=== PATIENT | male | born 1950 | race Caucasian/White ===

== ENCOUNTER → 2017-03-19 | Outpatient (CLI) | payer BC ==
[2017-03-19 10:48] LABS: BASO % 0.4 %; BASO ABS # 0.04 K/uL (0-0.2); COMPLETE YES; EOS % 6.8 %; IG% 0.2 %; LYMPH % 36.1 %; LYMPH ABS # 3.31 K/uL (1.2-3.4); MEAN CELL VOLUME 89.5 fL (80-100); MEAN CORPUSCULAR HEMOGLOBIN 30.4 pg (25-34); MEAN PLATELET VOLUME 10.5 fL (7.4-10.4); MONO % 6.3 %; NEUT % 50.2 %; PLATELET COUNT 205 K/uL (130-400); RED BLOOD COUNT 5.03 M/uL (4.7-6.1); WHITE BLOOD COUNT 9.17 K/uL (4.8-10.8)
[2017-03-19 11:58] LABS: ALT/SGPT 43 U/L (12-78); AST/SGOT 22 U/L (15-37); BLOOD UREA NITROGEN 16 mg/dl (7-18); BUN/CREATININE RATIO 14.1 (10-20); CARBON DIOXIDE 24 mmol/L (21-32); CHLORIDE 107 mmol/L (98-107); CHOLESTEROL 176 mg/dl (0-200); CREATININE 1.14 mg/dl (0.60-1.40); GLUCOSE 100 mg/dl (70-99); SODIUM 141 mmol/L (136-145)
[2017-03-19 12:15] LABS: ALB/GLOB RATIO 1.1 (0.9-2); ALKALINE PHOSPHATASE 95 U/L (45-117); CHOLESTEROL/HDL RATIO 3.3; HDL CHOLESTEROL 54 mg/dl; LDL CHOLESTEROL CALCULATED 70 mg/dl; TRIGLYCERIDES 259 mg/dl (0-150); VERY LOW DENSITY LIPOPROT CALC 52 mg/dl
== END | disposition home or self-care (01) ==
LOC: C.LABBC 08:47
PROVIDERS: ATTEND Internal Medicine
DX: Z85.47 Personal history of malignant neoplasm of testis (principal); E78.5 Hyperlipidemia, unspecified; E55.9 Vitamin D deficiency, unspecified; Z12.5 Encounter for screening for malignant neoplasm of prostate; R03.0 Elevated blood-pressure reading, without diagnosis of hypertension

== ENCOUNTER → 2017-03-27 | Outpatient (CLI) | payer BC ==
--- NOTE | 2017-03-27 11:13 | DIAGNOSTIC IMAGING REPORT ---
L-SPINE MIN 4 VIEWS ROUTINE HISTORY: Pain CHRONIC LOW BACK PAIN COMPARISON: None. FINDINGS: There is no fracture. No subluxation. Moderate degenerative disc change L5-S1 and to a minimal extent. Remainder the lumbar spine. Soft tissue as well as pancreatic calcifications throughout. No evidence for bowel distention. No evidence for compression deformity. IMPRESSION: No fracture or subluxation within the lumbar spine. Mild degenerative change. Soft tissue abdominal calcification most likely vascular and less likely related to left renal components The above report was generated using voice recognition software. It may contain grammatical, syntax or spelling errors. Electronically signed by: Live Ernandez M.D. 03/27/2017 11:11 AM Dictated Date/Time: 03/27/2017 11:10 AM
== END | disposition home or self-care (01) ==
LOC: C.RADBC 10:49
PROVIDERS: ATTEND Internal Medicine
DX: M54.5 Low back pain (principal)

== ENCOUNTER → 2017-08-13 | Outpatient (CLI) | payer BC ==
--- NOTE | 2017-08-13 18:33 | DIAGNOSTIC IMAGING REPORT ---
LUMBAR SPINE MRI HISTORY: Low back pain. Left leg pain. LUMBAR STENOSIS,DISC HERNIATION TECHNIQUE: Multiplanar multisequence MRI of the lumbar spine was performed without the use of contrast. COMPARISON: Lumbar spine 03/27/2017. FINDINGS: For the purpose of the report the L5-S1 disc space will be located on axial image 23 of 25. Alignment and curvature intact. No fractures within the lumbar spine. Normal marrow signal intensity seen throughout the visualized osseous structures. Mild disc space narrowing and disc desiccation at L3-L4 and L5-S1. The conus terminates at the L1 level. There is a hypoplastic S1-S2 disc space. There is a 3.4 x 2.1 cm left periaortic nodule. This likely represents an enlarged lymph node. Left peripelvic cysts are noted. Subcentimeter bilateral T2 hyperintense renal foci likely represent cysts. There is an ectatic abdominal aorta which is only partially visualized. Mild facet degenerative changes within the lumbar spine. L1-L2: No significant central canal or neural foraminal narrowing. L2-L3: No significant central canal or neural foraminal narrowing. L3-L4: Tiny broad-based posterior disc bulge. No significant central canal or neural foraminal narrowing. L4-L5: Tiny broad-based posterior disc bulge. No significant central canal or neural foraminal narrowing. L5-S1: Tiny broad-based posterior disc bulge. No significant central canal narrowing. Mild bilateral neural foraminal narrowing due to the disc bulge and facet hypertrophy. IMPRESSION: 1. No disc herniations. No significant central canal narrowing. 2. Mild bilateral neural foraminal narrowing at L5-S1. 3. A 3.4 x 2.1 cm left periaortic nodule. This is concerning for an enlarged lymph node. Follow-up abdomen and pelvis CT is recommended for further evaluation. Electronically signed by: Wolf Grijalva M.D. 08/13/2017 6:32 PM Dictated Date/Time: 08/13/2017 6:24 PM
== END | disposition home or self-care (01) ==
LOC: C.MRIBC 16:15
PROVIDERS: ATTEND Orthopaedic Surgery Orthopaedic Surgery of the Spine
DX: M48.061 Spinal stenosis, lumbar region without neurogenic claudication (principal); M51.26 Other intervertebral disc displacement, lumbar region

== ENCOUNTER → 2017-08-23 | Outpatient (CLI) | payer BC ==
[2017-08-23 14:38] LABS: BLOOD UREA NITROGEN 15 mg/dl (7-18); CALCIUM 9.9 mg/dl (8.5-10.1); CARBON DIOXIDE 28 mmol/L (21-32); GLUCOSE 102 mg/dl (70-99); POTASSIUM 4.1 mmol/L (3.5-5.1); SODIUM 139 mmol/L (136-145)
== END | disposition home or self-care (01) ==
LOC: C.LABBC 10:19
PROVIDERS: ATTEND Internal Medicine
DX: E29.1 Testicular hypofunction (principal); I10 Essential (primary) hypertension

== ENCOUNTER → 2017-08-29 | Outpatient (CLI) | payer BC ==
[~2017-08-29] MED LIST: OPTIRAY 320 IV PRN
--- NOTE | 2017-08-29 13:38 | DIAGNOSTIC IMAGING REPORT ---
CT SCAN OF THE ABDOMEN AND PELVIS WITH IV CONTRAST CLINICAL HISTORY: Enlarged lymph node seen by lumbar spine MRI. COMPARISON STUDY: Radiographs of lumbar spine dated 03/27/2017. MRI of the lumbar spine dated 08/13/2017. TECHNIQUE: Following the IV administration of 117 cc of Optiray 320, CT scan of the abdomen and pelvis is performed from the lung bases to the proximal femora. Images are reviewed in the axial, sagittal, and coronal planes. IV contrast was administered without complication. A dose lowering technique was utilized adhering to the principles of ALARA. CT DOSE: 874.21 mGycm FINDINGS: Lung bases: The heart is normal in size and without pericardial effusion. The coronary arteries are densely calcified. Emphysematous change is present at both lung bases. No airspace consolidation or pleural effusion is identified. Liver: The contrast-enhanced liver is mildly enlarged, measuring 18.5 cm in length. The liver demonstrates diminished attenuation suggesting hepatic steatosis. There is no intrahepatic biliary ductal dilatation. The hepatic veins and portal veins are patent. Gallbladder: Unremarkable. Spleen: Normal in size and attenuation. Pancreas: An 8 mm lipoma is incidentally noted in the pancreatic head. The pancreas is otherwise normal as imaged. Adrenal glands: Unremarkable. Kidneys: The contrast enhanced kidneys are normal in size and without hydronephrosis. The kidneys enhance symmetrically. There is a circumaortic left renal vein. There are numerous parapelvic cysts seen on the left. Scattered subcentimeter cortical hypodensities also likely represent cysts but are too small for definitive characterization. A 3 mm nonobstructing calculus is seen in the right upper pole. Abdominal vasculature: There is advanced atherosclerotic calcification as well as mild ectasia of the abdominal aorta. Bowel: A left inguinal hernia contains a small segment of the sigmoid colon. No bowel obstruction is seen. There is moderate sigmoid diverticulosis without CT evidence of acute diverticulitis. The appendix is well-visualized and normal. Peritoneum: There is no intraperitoneal free air or abdominal ascites. There is a small fat-containing umbilical hernia. Lymphadenopathy: There is a densely calcified aggregate of left periaortic lymph nodes which measures 3.6 x 2.3 cm in dimension. This is seen image #216, and corresponds to abnormality seen on the recent MRI of the lumbar spine. Additional smaller calcified retroperitoneal lymph nodes are seen on images #224 and #244. There is a similar-appearing 1.3 cm portacaval node seen on image #165. No additional enlarged lymph nodes are seen in the abdomen or pelvis. Pelvic viscera: There is median lobe hypertrophy of the prostate gland. The bladder wall is mildly thickened and trabeculated suggesting chronic outlet obstruction. There is a moderate fat-containing left inguinal hernia. The left inguinal hernia also contains a small segment of the sigmoid colon. Skeletal structures: No lytic or blastic lesions are seen. IMPRESSION: 1. The left periaortic finding of concern on the recent MRI corresponds to an enlarged and densely calcified retroperitoneal lymph node. Additional smaller calcified retroperitoneal and portacaval nodes are identified. These nodes are likely chronic and of low suspicion, possibly related to remote granulomatous infection. Consider precautionary 6-12 month follow-up for reassessment. 2. Advanced emphysema and atherosclerotic disease, including calcification of the coronary arteries. 3. Hepatomegaly and mild hepatic steatosis. 4. Moderate sigmoid diverticulosis without CT evidence of acute diverticulitis. 5. There is a left inguinal hernia which contains a nonobstructed segment of the sigmoid colon. No bowel obstruction is identified. 6. Nonobstructing right renal calculus. 7. Additional findings as above. Electronically signed by: Gallo Mcneal M.D. 08/29/2017 1:37 PM Dictated Date/Time: 08/29/2017 1:25 PM
== END | disposition home or self-care (01) ==
LOC: C.CTS 11:38
PROVIDERS: ATTEND Internal Medicine
DX: R93.8 Abnormal findings on diagnostic imaging of other specified body structures (principal); J43.9 Emphysema, unspecified; I25.10 Atherosclerotic heart disease of native coronary artery without angina pectoris; R16.0 Hepatomegaly, not elsewhere classified; K76.0 Fatty (change of) liver, not elsewhere classified; N20.0 Calculus of kidney

== ENCOUNTER → 2017-09-13 | Day surgery (SDC) | payer BC ==
[2017-09-12 09:33] VITALS: Ht 177.8 cm; Wt 88.6 kg
[~2017-09-13] VITALS: Ht 177.8 cm; Wt 88.6 kg
[~2017-09-13] MED LIST changes: +AMLO-110 PO; +ASPECOTC PO; +B-COTAB18 PO; +CALC600T9 PO; +CHOL200010 PO; +CITA20TA4 PO; +DEXAMETHASONE SOD INJ 4 MG/ML VIAL ONE; +DVN/160 PO; +LIDOCAINE HCL 1% MPF 5 ML VIAL ONE; +MULT-506 PO; +OMEG10007 PO; -OPTIRAY 320 IV PRN; +SIMV20TA2 PO
--- NOTE | 2017-09-13 07:00 | History & Physical Bridge - SC ---
H&P Re-Evaluation Bridge Note: I have examined the patient, reviewed the History & Physical and in the interval since the performance of the History & Physical I have noted the following changes of clinical significance: No changes noted
--- NOTE | 2017-09-13 07:38 | History & Physical Bridge - SC ---
H&P Re-Evaluation Bridge Note: I have examined the patient, reviewed the History & Physical and in the interval since the performance of the History & Physical I have noted the following changes of clinical significance: No changes noted; facet injections L5-s1 bilateral
--- NOTE | 2017-09-13 07:52 | Discharge Instructions-SurgCtr ---
Discharge Instructions Date of Service Sep 13, 2017. Visit Reason for Visit: Intervertebral Disc Disorder With Myelopathy, Lumb Discharge Discharge Diagnosis / Problem: same Discharge Goals Goal(s): Decrease discomfort, Improve function Activity Recommendations Activity Limitations: resume your previous activity Anesthesia . Post Anesthesia Instructions: If you have had General Anesthesia or IV Sedation: * Do not drive today. * Resume driving when surgeon permits. * Do not make important decisions or sign legal documents today. * Call surgeon for: 1. Temperature elevations greater than 101 degrees F. 2. Uncontrollable pain. 3. Excessive bleeding. 4. Persistent nausea and vomiting. 5. Medication intolerance (nausea, vomiting or rash). * For nausea and vomiting use only clear liquids such as: tea, soda, bouillon until nausea subsides, then gradually increase diet as tolerated. * If you have any concerns or questions, call your surgeon's office. If physician is unavailable and it is an emergency, call 911 or go to the nearest emergency room. . Diet Recommendations Home Diet: no limitations Pending Studies Studies pending at discharge: no Medical Emergencies . Who to Call and When: Medical Emergencies: If at any time you feel your situation is an emergency, please call 911 immediately. . Non-Emergent Contact Non-Emergency issues call your: Primary Care Provider . . "Provider Documentation" section prepared by Stephen Adler. .
--- NOTE | 2017-09-13 07:53 | [facility] Post Operative Brief Note ---
Immediate Operative Summary Operative Date Sep 13, 2017. Pre-Operative Diagnosis spinal arthritis Post-Operative Diagnosis same Procedure(s) Performed facet injections L5-S1 Surgeon didier Assistant Plant Manager Surgeon(s) none Estimated Blood Loss 0 Findings Consistent with Post-Op Diagnosis Specimens 0 Anesthesia Type Local Complication(s) none
[2017-09-13 07:56] VITALS: TEMP 37
[2017-09-13 08:10] VITALS: BP 131/90; PULSE 93; O2SAT 95
--- NOTE | 2017-09-13 08:36 | OPERATIVE REPORT ---
DATE OF OPERATION: 09/13/2017 PREOPERATIVE DIAGNOSIS: Facet joint arthritis, lumbar. POSTOPERATIVE DIAGNOSIS: Same. PROCEDURE: Included facet joint injections, L5-S1 bilateral. SURGEON: Stephen Adler DO. COMPLICATIONS: Zero. BLOOD LOSS: Zero. DESCRIPTION OF PROCEDURE: The patient was taken to the minor procedure room surgical center [facility]. Placed prone, scrubbed, prepped and draped sterile. The 22-gauge Tuohy needle advanced doing biplanar imaging to the facet joints bilaterally L5-S1. One mL of dexamethasone injected to each facet area. The patient tolerated well and discharged home in improved stable condition. I attest to the content of the Intraoperative Record and any orders documented therein. Any exception s are noted below.
== END | disposition home or self-care (01) ==
LOC: X.SURG 06:18
PROVIDERS: ATTEND Orthopaedic Surgery Orthopaedic Surgery of the Spine
DX: M46.96 Unspecified inflammatory spondylopathy, lumbar region (principal)

== ENCOUNTER 2021-05-12 14:15 | Inpatient (IN) ==
--- NOTE | 2021-05-12 14:45 | Emergency Department Note ---
Impression & Plan Mass of spine, Back pain, Lumbar radicular pain, Acute hyponatremia ED Provider Note NAME: AIDA HERRERA AGE: 71 SEX: M : 1950 ARRIVES VIA: Walk-In INFORMANT: Patient ED PROVIDER(S): Idris Woodward DO CHIEF COMPLAINT: back pain HPI: Patient is a 71-year-old male who presents to the ER for back pain. He has a past medical history of hyperlipidemia, hypertension, aortic stenosis and previous testicular cancer. Patient is complaining of back pain which has been present for the past 4 years. The pain has gotten significantly worse after/at the end of April. Patient denies any headache or change in vision. No chest pain or shortness of breath. No nausea, vomiting, or diarrhea. No dysuria, urgency, or frequency. No other exacerbating or remitting factors. He admits to tingling in the left lower extremity. ROS: See above HPI for pertinent positives & negatives. A total of 10 systems reviewed and were otherwise negative. PAST MEDICAL HISTORY:See Below PAST SURGICAL HISTORY:See Below FAMILY HISTORY:See Below SOCIAL HISTORY:See Below HOME MEDICATIONS:See Below ALLERGIES:See Below VITALS:See Below PHYSICAL EXAMINATION: GENERAL: Sitting up in bed, alert, well appearing, well nourished, no distress, non-toxic EYE EXAM: normal conjunctiva. OROPHARYNX: no exudate, no erythema, lips, buccal mucosa, and tongue normal and mucous membranes are moist NECK: supple, no nuchal rigidity, no adenopathy, non-tender LUNGS: Clear to auscultation. Normal chest wall mechanics HEART: no murmurs, S1 normal and S2 normal ABDOMEN: abdomen soft, non-tender, normo-active bowel sounds, no masses, no rebound or guarding. BACK: Back is symmetrical on inspection and there is no deformity, no midline tenderness, no CVA tenderness. SKIN: no rashes and no bruising UPPER EXTREMITIES: upper extremities are grossly normal. LOWER EXTREMITIES: Flexion and extension of the hips, knees, ankles, and EHL 5/5 bilaterally. Gross sensation is intact. DPs are 2/4 bilateral. Patellar and Achilles reflexes are 2/4 bilateral NEURO EXAM: Normal sensorium, cranial nerves II-XII grossly intact, normal speech, no gross weakness of arms, no gross weakness of legs. MEDICAL DECISION MAKING: Patient is a 71-year-old male who presents ER referred in for back pain. He had a CT and MRI performed earlier today which showed a large spinal mass at L3 region. On exam he is completely neurologically intact including reflexes. IV was established blood work was obtained. Labs show leukocytosis of 11,000. No significant anemia. Denies any fevers. BMP with mild hyponatremia 134. LFTs bilirubin was unremarkable. Lipase was normal. UA was clean. Initially tried to contact our spinal surgeon but he was not on-call. He did operate in the OR and left for the day. Was able to contact her wool fleece sorter oncologist as well as radiation oncology. Hematology oncology recommended if able to biopsy can stay here and gave additional labs to order which I did obtain. Did contact Hay from radiology. He spoke with his colleagues and they are willing to biopsy this via CT tomorrow morning. We discussed with hematology oncology to update them. Discussed with radiation oncology and they are agreeable to seeing the patient. Discussed with Dr. Jose Valdez for further evaluation. Patient has been updated at bedside. Triage Nursing notes reviewed. Limited review of prior medical records performed Vital Signs: reviewed and remarkable for htn Differential diagnosis: Differential diagnoses includes but is not limited to lumbar radiculopathy, kidney stone, muscle strain, facture, cauda equina, mass, and disc herniation. ER treatment provided: See below Diagnostics interpreted by me: ECG: none Cardiac Monitoring: An order was placed for continuous cardiac monitoring. The monitor shows a rate of 80 with sinus rhythm. Laboratory studies: As stated above and show below. Imaging studies: CT of the chest was obtained and showed a pulmonary nodule Consultation(s): Discussed with from radiation oncology and he agreed with evaluating patient tomorrow and will likely be his colleague Discussed with hematology oncology from [facility] who agreed with evaluation tomorrow Discussed with Hay Zee from radiology they will attempt to biopsy tomorrow Discussed with the hospitalist for admission Procedures: none Critical Care: None Past Med/Surg History Medical History Aortic stenosis Atherosclerosis of abdominal aorta Chronic deep vein thrombosis (DVT) of femoral vein History of testicular mass HTN (hypertension) Hyperlipidemia Hypogonadism Low back pain Surgical History History of colonoscopy History of ligation of vein Family History Father Dyslipidemia Diabetes Hypertension Social History Smoking Status: Current every day smoker Tobacco Type: Cigarettes Age Started Using Tobacco: 30; packs per day: 0.15; Years Smoked: 39; Cigarettes Per Day: 3; Second Hand Exposure: No; Hx Alcohol Use: Yes Alcohol type: beer, wine and hard liquor Alcohol Intake Frequency: Monthly or Less Hx Substance Use: No Preferred Language: [place] Communication Ability: Effective Visual Impairment: Limited Hearing Ability: Normal Press Operator Carbon Blocks Required: Yes and No marital status: Current Living Situation: Spouse current occupational status: retired Feels Safe at Home: Yes Childhood Exposure to Second-Hand Smoke: No caffeine: Yes Dental Care, Regularly: Yes Physical Activity Frequency: 3-4 Times per Week Physical Activity Frequency Comment: walk Seatbelt Use: always Sunscreen Use: Yes Do you think of yourself as: straight/heterosexual Allergies Allergies Allergy/AdvReac Type Severity Reaction Status Date / Time carvedilol Allergy Unknown Unknown Verified 05/12/21 15:10 lisinopril Allergy Unknown Unknown Verified 05/12/21 15:10 rosuvastatin Allergy Unknown Unknown Verified 05/12/21 15:10 tetracycline Allergy Unknown ITCHING Verified 05/12/21 15:10 Home Meds Home Medications Medication Instructions Recorded Confirmed cholecalciferol (vitamin D3) 25 1,000 units PO DAILY 04/02/19 05/12/21 mcg (1,000 unit) capsule multivitamin 1 tab PO DAILY 04/02/19 05/12/21 omega-3 acid ethyl esters 1 gram 1 cap PO DAILY cap 04/02/19 05/12/21 capsule vitamin B complex 1 cap PO DAILY 04/02/19 05/12/21 aspirin 325 mg tablet 325 mg PO DAILY 04/08/20 05/12/21 atorvastatin 10 mg tablet 10 mg PO .QOD tab 10/19/20 05/12/21 Previous Rx's Medication Instructions Recorded citalopram 20 mg tablet 20 mg PO DAILY #90 tab 07/22/20 telmisartan 40 mg tablet 40 mg PO DAILY #90 tab 07/29/20 cyclobenzaprine 10 mg tablet 10 mg PO TID PRN #30 tab 04/18/21 tramadol 50 mg tablet 50 mg PO Q8H PRN #15 tab 04/29/21 prednisone 10 mg tablet See Rx Instructions .ROUTE 05/02/21 .COMPLEX #30 tab oxycodone 5 mg tablet 5 mg PO Q8H PRN #20 tab 05/11/21 Results & Data (ED) Vital Signs Vital Signs - 24 hr 05/12/21 14:20 05/12/21 15:00 Temperature 36.6 C Temperature Source Skin Pulse Rate 88 Pulse Rate [Left Finger] 87 Pulse Rhythm [Left Finger] Regular Respiratory Rate 18 20 Blood Pressure 165/98 H Blood Pressure [Left Arm] 165/104 H Blood Pressure Mean 120 Blood Pressure Mean [Left Arm] 124 Pulse Oximetry 99 96 Oxygen Delivery Method Room Air Room Air Sepsis Recent Fever Within 48 Hours No Sepsis New/Unexplained Change in Mental Status No Sepsis Action Taken by Nursing No Action Required Laboratory Data Result diagrams: 05/12/21 15:00 05/12/21 15:00 Lab Results 05/12/21 05/12/21 05/12/21 Range/Units 15:00 15:00 15:09 WBC 11.53 H (4.8-10.8) K/uL RBC 4.87 (4.7-6.1) M/uL Hgb 14.8 (14.0-18.0) g/dL Hct 43.6 (42-52) % MCV 89.5 (80-100) fL MCH 30.4 (25-34) pg MCHC 33.9 (32-36) g/dL RDW Std Deviation 46.4 H (36.4-46.3) fL RDW Coeff of Jesus 14.2 (11.5-14.5) % Plt Count 225 (130-400) K/uL MPV 9.9 (7.4-10.4) fL Immature Gran % (Auto) 0.3 % Neut % (Auto) 74.3 % Lymph % (Auto) 19.7 % [place] % (Auto) 4.9 % Eos % (Auto) 0.7 % Baso % (Auto) 0.1 % Neut # (Auto) 8.56 H (1.4-6.5) K/uL Lymph # (Auto) 2.27 (1.2-3.4) K/uL [place] # (Auto) 0.57 (0.11-0.59) K/uL Eos # (Auto) 0.08 (0-0.5) K/uL Baso # (Auto) 0.01 (0-0.2) K/uL Immature Gran # (Auto) 0.04 H (0.00-0.02) K/uL Sodium 134 L (136-145) mmol/L Potassium 4.0 (3.5-5.1) mmol/L Chloride 101 (98-107) mmol/L Carbon Dioxide 29 (21-32) mmol/L Anion Gap 4.0 (3-11) BUN 15 (7-18) mg/dl Creatinine 0.87 (0.6-1.4) mg/dl Est Cr Clr Drug Dosing 79.4 ml/min Est GFR ( Amer) 100.6 ml/min Est GFR (Non-Af Amer) 86.8 ml/min BUN/Creatinine Ratio 17.6 (10-20) Glucose 127 H (70-99) mg/dl Calcium 10.1 (8.5-10.1) mg/dl Total Bilirubin 0.7 (0.2-1) mg/dl AST 14 L (15-37) U/L ALT 23 (12-78) Alkaline Phosphatase 153 H (45-117) U/L Total Protein 7.8 (6.4-8.2) gm/dl Albumin 4.1 (3.4-5.0) gm/dl Globulin 3.7 (2.5-4.0) gm/dl Albumin/Globulin Ratio 1.1 (0.9-2) Lipase 79 (73-393) U/L Urine Color Yellow Urine Appearance Clear (Clear) Urine pH 7.0 (4.5-7.5) Ur Specific [place] 1.017 (1.000-1.030) Urine Protein Negative (Negative) Urine Glucose (UA) Negative (Negative) Urine Ketones Negative (Negative) Urine Blood 1+ H (Negative) Urine Nitrite Negative (Negative) Urine Bilirubin Negative (Negative) Urine Urobilinogen Negative (Negative) Ur Leukocyte Esterase Negative (Negative) Urine WBC (Auto) 0 (0-5) /hpf Urine RBC (Auto) 0-4 (0-4) /hpf U Hyaline Cast (Auto) 0 (0-5) /lpf U Epithel Cells (Auto) 0-5 (0-5) /lpf Urine Bacteria (Auto) Negative (Negative) IgG (700-1600) mg/dl IgA (70-400) mg/dl IgM (40-230) mg/dl 05/12/21 Range/Units 16:39 WBC (4.8-10.8) K/uL RBC (4.7-6.1) M/uL Hgb (14.0-18.0) g/dL Hct (42-52) % MCV (80-100) fL MCH (25-34) pg MCHC (32-36) g/dL RDW Std Deviation (36.4-46.3) fL RDW Coeff of Jesus (11.5-14.5) % Plt Count (130-400) K/uL MPV (7.4-10.4) fL Immature Gran % (Auto) % Neut % (Auto) % Lymph % (Auto) % [place] % (Auto) % Eos % (Auto) % Baso % (Auto) % Neut # (Auto) (1.4-6.5) K/uL Lymph # (Auto) (1.2-3.4) K/uL [place] # (Auto) (0.11-0.59) K/uL Eos # (Auto) (0-0.5) K/uL Baso # (Auto) (0-0.2) K/uL Immature Gran # (Auto) (0.00-0.02) K/uL Sodium (136-145) mmol/L Potassium (3.5-5.1) mmol/L Chloride (98-107) mmol/L Carbon Dioxide (21-32) mmol/L Anion Gap (3-11) BUN (7-18) mg/dl Creatinine (0.6-1.4) mg/dl Est Cr Clr Drug Dosing ml/min Est GFR ( Amer) ml/min Est GFR (Non-Af Amer) ml/min BUN/Creatinine Ratio (10-20) Glucose (70-99) mg/dl Calcium (8.5-10.1) mg/dl Total Bilirubin (0.2-1) mg/dl AST (15-37) U/L ALT (12-78) Alkaline Phosphatase (45-117) U/L Total Protein (6.4-8.2) gm/dl Albumin (3.4-5.0) gm/dl Globulin (2.5-4.0) gm/dl Albumin/Globulin Ratio (0.9-2) Lipase (73-393) U/L Urine Color Urine Appearance (Clear) Urine pH (4.5-7.5) Ur Specific [place] (1.000-1.030) Urine Protein (Negative) Urine Glucose (UA) (Negative) Urine Ketones (Negative) Urine Blood (Negative) Urine Nitrite (Negative) Urine Bilirubin (Negative) Urine Urobilinogen (Negative) Ur Leukocyte Esterase (Negative) Urine WBC (Auto) (0-5) /hpf Urine RBC (Auto) (0-4) /hpf U Hyaline Cast (Auto) (0-5) /lpf U Epithel Cells (Auto) (0-5) /lpf Urine Bacteria (Auto) (Negative) IgG 847.0 (700-1600) mg/dl IgA 114.0 (70-400) mg/dl IgM 44.8 (40-230) mg/dl Administered Medications Discontinued Medications Morphine Sulfate (Morphine Sulfate 4 Mg/Ml 1 Ml Carp\Vial) 4 mg IV NOW STA Stop: 05/12/21 16:58 Last Admin: 05/12/21 18:21 Dose: 4 mg Documented by: [id number] Imaging Data Radiologist's Impression: Chest CT 05/12/21 15:55 CT chest diagnostic wo con CLINICAL HISTORY: ? cancer TECHNIQUE: Multidetector row helical CT of the chest was performed. Coronal and sagittal reformations were obtained. Automated dose lowering techniques and/or adjustment according to patient size were utilized for this exam. Comparison: None available at the time of this dictation. FINDINGS: Lungs and pleura: Multifocal cysts are seen bilaterally. There is a nodule in the left upper lobe measuring 5 mm in diameter. Heart and pericardium: Heart size is normal. No pericardial effusion. Vessels: Severe atherosclerotic changes in the aorta and coronary arteries. Mediastinum and carola: Unremarkable. Chest wall and lower neck: Unremarkable. Abdomen: For findings below the diaphragm, please refer to CT of the abdomen dated the same. Bones: No acute fractures are seen. No lytic or blastic lesions are seen to suggest metastatic disease. IMPRESSION: No definite evidence of metastatic disease. A 5 mm nodule in the lingula is seen, attention on follow-up is recommended. ACT 112: Negative or not required by law. Electronically signed by: Hay Zee M.D. 05/12/2021 5:01 PM Discharge Plan Visit Data Chief Complaint: Back Injury/Pain Stated Complaint: MASS ON SPINE/REF BY ED Provider: Idris Woodward Discharge Problem: Mass of spine, Back pain, Lumbar radicular pain, Acute hyponatremia Forms Stand Alone Forms: [facility] Prescriptions Prescriptions: No Action citalopram 20 mg tablet 20 mg PO DAILY Qty: 90 RF: 3 telmisartan 40 mg tablet 40 mg PO DAILY Qty: 90 RF: 3 tramadol 50 mg tablet 50 mg PO Q8H PRN (Reason: pain) Qty: 15 RF: 0 Hold Instructions: oxycodone started oxycodone 5 mg tablet 5 mg PO Q8H PRN (Reason: pain) Qty: 20 RF: 0 cholecalciferol (vitamin D3) 1,000 unit capsule 1,000 units PO DAILY RF: 0 multivitamin tablet 1 tab PO DAILY RF: 0 omega-3 acid ethyl esters 1 gram capsule 1 cap PO DAILY RF: 0 vitamin B complex capsule 1 cap PO DAILY RF: 0 aspirin 325 mg tablet 325 mg PO DAILY RF: 0 cyclobenzaprine 10 mg tablet 10 mg PO TID PRN (Reason: muscle spasm) Qty: 30 RF: 0 prednisone 10 mg tablet See Rx Instructions .Route .COMPLEX Qty: 30 RF: 0 atorvastatin 10 mg tablet 10 mg PO .QOD RF: 0 Referrals Referrals: Trever Cornejo MD [Primary Care Provider] - Discharge Problem: Back pain Qualifiers: Back pain location: low back pain Chronicity: acute Back pain laterality: left Sciatica presence: unspecified whether sciatica present Qualified Code(s): M54.50 - Low back pain, unspecified
[2021-05-12 15:16] LABS: Basophils # (auto) 0.01 K/uL (0-0.2); Basophils % (auto) 0.1 %; Eosinophils # (auto) 0.08 K/uL (0-0.5); Eosinophils % (auto) 0.7 %; Hematocrit (blood only) 43.6 % (42-52); Hemoglobin 14.8 g/dL (14.0-18.0); Immature Granulocytes # (auto) 0.04 K/uL (0.00-0.02); Immature Granulocytes % (auto) 0.3 %; Lymphocytes # (auto) 2.27 K/uL (1.2-3.4); Lymphocytes % (auto) 19.7 %; Mean Corpuscular Hemoglobin 30.4 pg (25-34); Mean Corpuscular Hgb Conc 33.9 g/dL (32-36); Mean Corpuscular Volume 89.5 fL (80-100); Mean Platelet Volume 9.9 fL (7.4-10.4); Monocytes # (auto) 0.57 K/uL (0.11-0.59); Monocytes % (auto) 4.9 %; Neutrophils # (auto) 8.56 K/uL (1.4-6.5); Neutrophils % (auto) 74.3 %; Platelet Count 225 K/uL (130-400); RDW Coefficient of Variation 14.2 % (11.5-14.5); RDW Standard Deviation 46.4 fL (36.4-46.3); Red Blood Count 4.87 M/uL (4.7-6.1); White Blood Count 11.53 K/uL (4.8-10.8)
[2021-05-12 15:36] LABS: Albumin Level 4.1 gm/dl (3.4-5.0); BUN Creatinine Ratio 17.6 (10-20); Calcium 10.1 mg/dl (8.5-10.1); Creatinine Clr Calc Pharmacy 79.4 ml/min; Est GFR (African American) 100.6 ml/min; Est GFR (Non-African American) 86.8 ml/min
[2021-05-12 15:38] LABS: Appearance Urine Clear (Clear); Bacteria Urine Automated Negative (Negative); Bilirubin Urine Negative (Negative); Blood Urine 1+ (Negative); Cast Urine Automated 0 /lpf (0-5); Color Urine Yellow; Epithelial Cell Urine Auto 0-5 /lpf (0-5); Glucose Urine UA Negative (Negative); Ketones Urine Negative (Negative); Leukocyte Esterase Urine Negative (Negative); Nitrite Urine Negative (Negative); Protein Urine Negative (Negative); RBC Urine Automated 0-4 /hpf (0-4); Specific Gravity Urine 1.017 (1.000-1.030); Urobilinogen Urine Negative (Negative); WBC Urine Automated 0 /hpf (0-5)
[2021-05-12 15:38] LABS: Albumin Globulin Ratio 1.1 (0.9-2); Bilirubin,Total 0.7 mg/dl (0.2-1); Globulin 3.7 gm/dl (2.5-4.0); Total Protein 7.8 gm/dl (6.4-8.2)
[2021-05-12] MEDS ORDERED: MoRPHine SULFATE 4 MG/ML 1 ML CARP\\VIAL IV STA (16:57)
--- NOTE | 2021-05-12 17:02 | CT Scan Report ---
CT chest diagnostic wo con CLINICAL HISTORY: ? cancer TECHNIQUE: Multidetector row helical CT of the chest was performed. Coronal and sagittal reformations were obtained. Automated dose lowering techniques and/or adjustment according to patient size were u tilized for this exam. Comparison: None available at the time of this dictation. FINDINGS: Lungs and pleura: Multifocal cysts are seen bilaterally. There is a nodule in the left upper lobe mike suring 5 mm in diameter. Heart and pericardium: Heart size is normal. No pericardial effusion. Vessels: Severe atherosclerotic changes in the aorta and coronary arteries. Mediastinum and carola: Unremarkable. Chest wall and lower neck: Unremarkable. Abdomen: For findings below the diaphragm, please refer to CT of the abdomen dated the same. Bones: No acute fractures are seen. No lytic or blastic lesions are seen to suggest metastatic diseas e. IMPRESSION: No definite evidence of metastatic disease. A 5 mm nodule in the lingula is seen, attention on follow -up is recommended. ACT 112: Negative or not required by law. Electronically signed by: Hay Zee M.D. 05/12/2021 5:01 PM
[2021-05-12 17:18] LABS: Immunoglobulin M 44.8 mg/dl (40-230)
--- NOTE | 2021-05-12 17:53 | History & Physical Report ---
Date of Service May 12, 2021 Assessment & Plan (1) Mass of spine: Plan: Soft tissue mass arising from L3 vertebral body. No cauda equina symptoms such as leg weakness, bowel or urine incontinence. Main symptom of back pain and left radicular pain ER physician discussed with radiology and able to perform CT-guided biopsy of this area. We will continue his tapering dose of prednisone 10 mg p.o. daily for 2 more days. Consult orthospine Follow-up SPEP, UPEP, immunofixation, FLC (2) Chronic deep vein thrombosis (DVT) of femoral vein: Plan: Chronic thrombus and left femoral vein with chronic collateral veins in the anterior abdominal wall on scan in 2018 He is not on any long-term anticoagulation for this. Given lower extremity symptoms could be secondary to more acute DVT will get an ultrasound venous Doppler. (3) HTN (hypertension): Plan: Continue telmisartan 40 mg p.o. daily (4) Hyperlipidemia: Plan: Continue atorvastatin 10 mg p.o. every other day Plan: VTE prophylaxis - deferred due to CT-guided biopsy planned for tomorrow Diet - regular Disposition -admit to [facility] Admission and Anticipated Discharge Date Admission Date: May 12, 2021 History of Present Illness Chief Complaint: Back pain Primary Care Provider: Trever Cornejo MD Bunny Nunez is a 71 year old male who presents to the ER with back pain. He reports chronic back pain for years however significantly progressed over the last 3 to 4 weeks causing him to have little sleep. Initially he was using acetaminophen and ibuprofen which hardly helped, tramadol did very little, switch to oxycodone which would take the edge off. He tried chiropractor and physical therapy treatments and the pain just increased. His PCP organized a CT abdomen/pelvis and MRI lumbar spine which showed a large soft tissue mass arising from /invading the L3 vertebra. His PCP called him and recommended going back to the emergency room. He is currently on a prednisone taper with 2 days of 10 mg p.o. daily to continue. The steroid taper has helped with his pain. Pain severity 10/10 most of the time, radiating down his left anterior thigh but for the last 2 days it is going down his lateral left lower leg in addition. Associated reduced appetite, lost 20 pounds in the last 1/2 months. He denies any leg weakness, perianal numbness, urine or bowel incontinence. Of note CT abdomen pelvis from 2018 showed a chronic left femoral vein thrombus. 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 There is no mention of the thrombus on today's scan. Current CT abdomen pelvis also is concerning for hyperdense material in the bladder. UA 1+ positive blood however no red blood cells therefore highly doubtful these of blood clots. He is likely to get further imaging due to his soft tissue mass and this can be reevaluated on the scans. ER physician discussed with radiology and able to perform CT-guided biopsy tomorrow. He was referred to medicine for admission ongoing management of the soft tissue /vertebral mass. Allergies Allergy/AdvReac Type Severity Reaction Status Date / Time carvedilol Allergy Unknown Unknown Verified 05/12/21 15:10 lisinopril Allergy Unknown Unknown Verified 05/12/21 15:10 rosuvastatin Allergy Unknown Unknown Verified 05/12/21 15:10 tetracycline Allergy Unknown ITCHING Verified 05/12/21 15:10 Home Medications Medication Instructions Recorded Confirmed Type cholecalciferol (vitamin D3) 25 1,000 units PO DAILY 04/02/19 05/12/21 History mcg (1,000 unit) capsule multivitamin 1 tab PO DAILY 04/02/19 05/12/21 History omega-3 acid ethyl esters 1 gram 1 cap PO DAILY cap 04/02/19 05/12/21 History capsule vitamin B complex 1 cap PO DAILY 04/02/19 05/12/21 History aspirin 325 mg tablet 325 mg PO DAILY 04/08/20 05/12/21 History citalopram 20 mg tablet 20 mg PO DAILY #90 tab 07/22/20 05/12/21 Rx telmisartan 40 mg tablet 40 mg PO DAILY #90 tab 07/29/20 05/12/21 Rx atorvastatin 10 mg tablet 10 mg PO .QOD tab 10/19/20 05/12/21 History cyclobenzaprine 10 mg tablet 10 mg PO TID PRN #30 tab 04/18/21 05/12/21 Rx tramadol 50 mg tablet 50 mg PO Q8H PRN #15 tab 04/29/21 05/12/21 Rx prednisone 10 mg tablet See Rx Instructions .ROUTE 05/02/21 05/12/21 Rx .COMPLEX #30 tab oxycodone 5 mg tablet 5 mg PO Q8H PRN #20 tab 05/11/21 05/12/21 Rx Past Med/Surg History Medical History Aortic stenosis Atherosclerosis of abdominal aorta Chronic deep vein thrombosis (DVT) of femoral vein History of testicular mass HTN (hypertension) Hyperlipidemia Hypogonadism Low back pain Surgical History History of colonoscopy History of ligation of vein Family History Father Dyslipidemia Diabetes Hypertension Social History Smoking Status: Current every day smoker Tobacco Type: Cigarettes Age Started Using Tobacco: 30; packs per day: 0.15; Years Smoked: 39; Cigarettes Per Day: 3; Second Hand Exposure: No; Do You Dip or Chew Tobacco: No; Tobacco Cessation Education Requested by Patient: No Hx Alcohol Use: Yes Alcohol type: beer Alcohol Intake Frequency: Monthly or Less Hx Substance Use: No Preferred Language: Setswana Communication Ability: Effective Visual Impairment: Limited Hearing Ability: Normal Regional Merchandising Manager Required: No Beliefs That Will Affect Care: None marital status: Current Living Situation: Spouse current occupational status: retired Other Information That Helps Us Care for You: No Feels Safe at Home: Yes Safety Concerns: Feels Safe At This Time Childhood Exposure to Second-Hand Smoke: No caffeine: Yes Dental Care, Regularly: Yes Physical Activity Frequency: 3-4 Times per Week Physical Activity Frequency Comment: walk Seatbelt Use: always Sunscreen Use: Yes Do you think of yourself as: straight/heterosexual Assistive Devices: None Assistive Devices Comment: lower partial: not here Review of Systems Review of Systems: All systems reviewed & are unremarkable except as noted in HPI & below Physical Exam Constitutional: WD/WN, vitals as above Eyes: + anicteric sclerae; normal pupil size ENMT: external ear and nose normal, oropharynx normal Neck: trachea midline, no thyromegaly Respiratory: normal respiratory effort, lungs clear to auscultation Cardiovascular: Rate/Rhythm: regular rate and regular rhythm Heart Sounds: no murmur Extremities: normal capillary refill and + calf tenderness (Left) Gastrointestinal (Abdomen): normal bowel sounds, soft, nontender, no hepatosplenomegaly Skin: no rashes, warm and dry Neurologic: moves all extremities and awake; no focal motor deficits (5/5 strength b/l LE) and not confused Motor/Sensory: + sensory deficit (Left L2/3 distribution numbness) Psychiatric: A+Ox3, euthymic affect Genitourinary: no CVA tenderness Results & Data Results & Data ([facility]) Vital Signs (Past 12 Hours) Vital Signs Temp Pulse Pulse Resp BP BP Pulse Ox 05/12/21 15:00 87 20 165/104 H 96 05/12/21 14:20 36.6 C 88 18 165/98 H 99 Laboratory Results Abnormal lab results 05/12/21 05/12/21 05/12/21 Range/Units 15:00 15:00 15:09 WBC 11.53 H (4.8-10.8) K/uL RDW Std Deviation 46.4 H (36.4-46.3) fL Neut # (Auto) 8.56 H (1.4-6.5) K/uL Immature Gran # (Auto) 0.04 H (0.00-0.02) K/uL Sodium 134 L (136-145) mmol/L Glucose 127 H (70-99) mg/dl AST 14 L (15-37) U/L Alkaline Phosphatase 153 H (45-117) U/L Urine Blood 1+ H (Negative) Diagnostic Findings CT chest diagnostic wo con CLINICAL HISTORY: ? cancer TECHNIQUE: Multidetector row helical CT of the chest was performed. Coronal and sagittal reformations were obtained. Automated dose lowering techniques and/or adjustment according to patient size were utilized for this exam. Comparison: None available at the time of this dictation. FINDINGS: Lungs and pleura: Multifocal cysts are seen bilaterally. There is a nodule in the left upper lobe measuring 5 mm in diameter. Heart and pericardium: Heart size is normal. No pericardial effusion. Vessels: Severe atherosclerotic changes in the aorta and coronary arteries. Mediastinum and carola: Unremarkable. Chest wall and lower neck: Unremarkable. Abdomen: For findings below the diaphragm, please refer to CT of the abdomen dated the same. Bones: No acute fractures are seen. No lytic or blastic lesions are seen to suggest metastatic disease. IMPRESSION: No definite evidence of metastatic disease. A 5 mm nodule in the lingula is seen, attention on follow-up is recommended. MR lumbar spine wo/w con CLINICAL HISTORY: 71 years-old Male with M54.5 - Low back pain. Acute low back pain COMPARISON: CT abdomen and pelvis 03/04/2018, MRI lumbar spine 08/13/2017 TECHNIQUE: Multiplanar, multi sequence MRI of the lumbar spine was performed both with and without the use of 7.5 cc Gadavist FINDINGS: Partially calcified retroperitoneal lymph node at the level the kidneys redemonstrated on image 11 series 7 measuring 3.9 x 1.8 cm. Left-sided renal sinus cysts redemonstrated. Marrow replacing lesions involve the L2 and L3 vertebral bodies. Large associated destructive enhancing soft tissue component extends into the adjacent paraspinal tissues and left psoas muscle measuring up to 7.4 x 7.9 x 8.1 cm. The mass extends superiorly into the left lateral distrib ution at L1-L2 and extends into the L2-L3 and L3-L4 neuroforamina. There is also soft tissue mass extension into the anterior epidural space posterior to the L3 segment measuring up to 2.4 x 0.9 cm in craniocaudal and AP dimensions respectively. This results in narrowing as detailed below. There is massive abutment with edema and enhancement of the left paraspinal musculature. Bony destruction of the L3 segment with retropulsion. Signal within the imaged thoracic spinal cord is unremarkable. Conus medullaris terminates at the L1-L2 level. There is mild enhancement involving the lateral condyle krueger at the level of L2-L3. T12-L1: No central canal or neural foraminal stenosis. L1-L2: No central canal or neural foraminal stenosis. L2-L3: Disc desiccation. Ligament of flavum thickening with moderate facet arthrosis. Left neuroforaminal soft tissue mass as above. The central canal and right neural foramen are patent. Mild left neural foraminal narrowing. L3-L4: Disc desiccation with ligament of flavum thickening and moderate facet arthrosis. Mild central canal stenosis secondary to the anterior epidural mass. Severe narrowing of the left lateral recess. The right neuroforamen is patent. Soft tissue mass encasement with severe narrowing of the left neural foramen. L4-L5: Disc desiccation with spondylitic spurring and small circumferential annular disc bulge. Ligamentum flavum thickening with moderate facet arthrosis. The central canal is patent. Mild bilateral neural foraminal narrowing. L5-S1: Moderate disc space narrowing with spondylitic spurring and [employer] pricing consultant ior disc osteophyte complex. Moderate facet arthrosis. The central canal is patent. Mild bilateral neural foraminal stenosis. IMPRESSION: 1. Marrow replacing lesions of the L2 and L3 vertebral bodies results in bony destruction which is most pronounced within the L3 vertebral body. Large enhancing soft tissue component measures over 8 cm and extends into the adjacent paraspinal tissues and left psoas musculature. This demonstrates epidural mass extension with invasion into the left neural foramina, most pronounced at L3-L4. Differential considerations would include multiple myeloma versus metastasis from unknown primary. Oncologic workup is needed. 2. Mild enhancement involving the left lateral cauda equina at L2-L3 may be reactive or represent associated metastatic disease. 3. Edema and enhancement of the left paraspinal musculature may represent disease extension versus associated muscle strain. 4. Calcified retroperitoneal lymph nodes redemonstrated. CT abd pelvis oral and IV con CLINICAL HISTORY: M54.5 - Low back pain TECHNIQUE: Helical axial images of the abdomen and pelvis were obtained and displayed. Automated dose lowering techniques and/or adjustment according to patient size were utilized for this exam. This exam was performed with intravenous contrast. COMPARISON: Comparison is made to chest one view 03/04/2018 FINDINGS: Lower chest: Scattered bullae are seen. Liver: Unremarkable. No focal lesions are seen. Gallbladder and biliary tree: No calcified gallstones. Normal caliber wall. No intra- or extrahepatic biliary ductal dilation. Pancreas: Unremarkable, no focal lesions. Spleen: Unremarkable. Adrenals: Unremarkable. Kidneys and ureters: Multiple parapelvic cysts are seen on the left. No evidence of hydronephrosis or nephrolithiasis. Bladder: Hyperdense material is noted in the bladder. Reproductive organs: Unremarkable. Bowel: Unremarkable. Lymph nodes Retroperitoneal: Unremarkable. Mesenteric: Unremarkable. Pelvic: Unremarkable. Peritoneum: Normal Vessels: Calcified and noncalcified plaque is seen. There is a tiny infrarenal aortic aneurysm measuring up to 28 mm in diameter. Abdominal wall: A left inguinal hernia contains loops of bowel without evidence of strangulation. Bones: A large soft tissue mass is seen arising from the L3 vertebral body. Partial involvement is also seen in the inferior aspect of L2. Partial loss of height of L3 is seen. Partial calcification of this mass is noted at the level of the renal arteries. IMPRESSION: 1. Redemonstration of soft tissue mass arising from the L3 vertebral body, also seen on MRI lumbar spine performed same day. There is extension into the retroperitoneal space. Loss of height of L3 and cortical erosion of L2 are noted. 2. Hyperdense material is seen in the bladder. Correlation for hematuria versus excretion of contrast recommended. Medications Administered ER medications given: Morphine 4 mg IV Code Status & VTE Plan Code Status Full VTE Prophylaxis Plan VTE Prophylaxis will be ordered: No PG Care Time/CCT Total # of Minutes Spent Total Time Spent with Patient: Total time spent is greater than 50% in coordination of care (as documented) at patient's floor/unit and/or counseling patient: Coding Level of Care Code 68334 Initial Inpt Care Lvl 3 Diagnoses Mass of spine M89.8X8 HTN (hypertension) I10 Hypertension type: essential hypertension Hyperlipidemia E78.2 Hyperlipidemia type: mixed hyperlipidemia Chronic deep vein thrombosis (DVT) of femoral vein I82.519 (1) Hyperlipidemia Hyperlipidemia type: mixed hyperlipidemia Qualified Code(s): E78.2 - Mixed hyperlipidemia (2) HTN (hypertension) Hypertension type: essential hypertension Qualified Code(s): I10 - Essential (primary) hypertension
--- NOTE | 2021-05-12 20:33 | Ultrasound Report ---
US venous doppler LE LT CLINICAL HISTORY: Left lower extremity pain. Remote history of DVT COMPARISON: None available at the time of this dictation. TECHNIQUE: Left lower extremity real-time compression venous ultrasound with Color Doppler imaging. Utilizing real-time ultrasonic imaging multiple real time high-resolution ultrasonic images with comp ression and noncompression maneuvers of the deep venous system in addition to color doppler imaging w ere performed from the common femoral vein through the proximal calf veins. FINDINGS: There is thrombus within the common femoral vein, superficial femoral vein, popliteal vein and veins of the calf representing acute DVT. There is noncompressible. Impression: Extensive deep venous thrombosis. ACT 112: Negative or not required by law. Electronically signed by: Carroll Wright M.D. 05/12/2021 8:32 PM
[2021-05-12] MEDS ORDERED: ONDANSETRON INJ 2 MG/ML 2 ML VIAL IV PRN (21:00)
[2021-05-12] MEDS ORDERED: POLYETHYLENE (MIRALAX) 17 GM PACK PO PRN (21:00)
[2021-05-12] MEDS ORDERED: ACETAMINOPHEN 325 MG TAB PO PRN (21:00)
[2021-05-12] MEDS: oxyCODONE HCL IR 5 MG TAB (IMMEDIATE RELEASE) PO PRN (22:23)
[2021-05-12] MEDS ORDERED: INFLUENZA VACCINE HIGH DOSE PF 65+ 0.7 ML SYR IM ONE (23:51)
[2021-05-13] MEDS: MoRPHine SULFATE 4 MG/ML 1 ML CARP\\VIAL IV PRN ×3 (01:33→21:35)
[2021-05-13] MEDS: NICOTINE 14 MG/24 HR PATCH TD SCH ×2 (01:34→11:28)
--- NOTE | 2021-05-13 02:01 | Communication Note ---
Date of Service: May 13, 2021 Ultrasound venous Doppler with extensive thrombus in common femoral vein, superficial femoral vein, popliteal vein, and veins of the calf representing a cute DVT. Unclear whether his leg symptoms are related to nerve compression versus DVT. Suspect some of this is chronic given his prior history. However given acute symptoms progressively going down his leg this could be explained by a more acute DVT. Will start on heparin standard IV drip with bolus. This can be held [address]-guided biopsy tomorrow. Given extensive DVT with likely compression will consult vascular surgery.
[2021-05-13] MEDS ORDERED: Heparin IV Adult Wt-Based Standard WITH Bolus Protocol IV SCH (02:03)
[2021-05-13] MEDS ORDERED: HEPARIN SOD (PORCINE) 1000 UNIT/ML IV ONE (02:04)
[2021-05-13] MEDS ORDERED: HEPARIN SODIUM/DEXTROSE 25,000 UNITS/500 ML BAG IV SCH (02:15)
[2021-05-13] MEDS: LACTATED RINGER'S 1,000 ML IV SCH ×2 (02:16→14:59)
[2021-05-13 02:22] LABS: Basophils # (auto) 0.03 K/uL (0-0.2); Basophils % (auto) 0.2 %; Eosinophils # (auto) 0.26 K/uL (0-0.5); Eosinophils % (auto) 2.2 %; Hematocrit (blood only) 41.6 % (42-52); Immature Granulocytes # (auto) 0.03 K/uL (0.00-0.02); Immature Granulocytes % (auto) 0.2 %; Lymphocytes # (auto) 3.94 K/uL (1.2-3.4); Lymphocytes % (auto) 32.7 %; Mean Corpuscular Hemoglobin 30.8 pg (25-34); Mean Corpuscular Hgb Conc 33.7 g/dL (32-36); Mean Corpuscular Volume 91.4 fL (80-100); Mean Platelet Volume 9.9 fL (7.4-10.4); Monocytes # (auto) 0.87 K/uL (0.11-0.59); Monocytes % (auto) 7.2 %; Neutrophils # (auto) 6.93 K/uL (1.4-6.5); Neutrophils % (auto) 57.5 %; Platelet Count 238 K/uL (130-400); RDW Coefficient of Variation 14.2 % (11.5-14.5); RDW Standard Deviation 47.4 fL (36.4-46.3); Red Blood Count 4.55 M/uL (4.7-6.1); White Blood Count 12.06 K/uL (4.8-10.8)
[2021-05-13] MEDS ORDERED: HEPARIN IV BOLUS 6,000 UNITS in SYRINGE 0 ML IV ONE (02:30)
[2021-05-13 02:38] LABS: Calcium 9.9 mg/dl (8.5-10.1); Est GFR (African American) 96.6 ml/min; Est GFR (Non-African American) 83.4 ml/min; Partial Thromboplastin Ratio 0.9; Partial Thromboplastin Time 22.7 Seconds (21.0-31.0); Potassium 4.1 mmol/L (3.5-5.1); Prothrombin Time 10.6 Seconds (9.0-12.0)
[2021-05-13] MEDS: oxyCODONE HCL IR 5 MG TAB (IMMEDIATE RELEASE) PO PRN ×3 (05:58→18:11)
[2021-05-13 06:11] LABS: Basophils # (auto) 0.03 K/uL (0-0.2); Basophils % (auto) 0.2 %; Eosinophils % (auto) 3.2 %; Hematocrit (blood only) 41.2 % (42-52); Hemoglobin 13.5 g/dL (14.0-18.0); Immature Granulocytes # (auto) 0.03 K/uL (0.00-0.02); Immature Granulocytes % (auto) 0.2 %; Lymphocytes # (auto) 3.96 K/uL (1.2-3.4); Lymphocytes % (auto) 31.4 %; Mean Corpuscular Hemoglobin 29.8 pg (25-34); Mean Corpuscular Hgb Conc 32.8 g/dL (32-36); Mean Corpuscular Volume 90.9 fL (80-100); Mean Platelet Volume 9.9 fL (7.4-10.4); Monocytes # (auto) 0.84 K/uL (0.11-0.59); Monocytes % (auto) 6.7 %; Neutrophils # (auto) 7.37 K/uL (1.4-6.5); Neutrophils % (auto) 58.3 %; Platelet Count 237 K/uL (130-400); RDW Coefficient of Variation 14.4 % (11.5-14.5); RDW Standard Deviation 48.6 fL (36.4-46.3); Red Blood Count 4.53 M/uL (4.7-6.1); White Blood Count 12.63 K/uL (4.8-10.8)
[2021-05-13 06:42] LABS: Partial Thromboplastin Ratio 3.1
[2021-05-13 07:05] LABS: Partial Thromboplastin Time 80.3 Seconds (21.0-31.0)
[2021-05-13 09:18] LABS: Partial Thromboplastin Ratio 2.3
[2021-05-13 09:19] LABS: Partial Thromboplastin Time 60.4 Seconds (21.0-31.0)
[2021-05-13] MEDS: TELMISARTAN 40 MG TAB PO SCH (09:53)
[2021-05-13] MEDS: CITALOPRAM 20 MG TAB PO SCH (09:53)
[2021-05-13] MEDS: predniSONE 10 MG TABLET PO SCH (09:53)
[2021-05-13] MEDS: VITAMIN B COMPLEX TAB PO SCH (09:53)
[2021-05-13] MEDS: MULTIVITAMIN TAB PO SCH (09:53)
--- NOTE | 2021-05-13 11:08 | Consultation ---
Date of Consultation May 13, 2021 Assessment & Plan (1) Chronic deep vein thrombosis (DVT) of femoral vein: Pt with chronic appearance of LLE DVT and no acute sx of DVT. Pt's CT and US reviewed by Dr Fong. While veins are noncompressible, they are nondistended and appear chronic. Recommend DVT ppx with lovenox while hospitalized, but pt does not require tank terminal gauger anticoagulation for chronic DVT No indications for vascular surgical intervention at this time. His susan-spinal mass demonstrates no compression of IVC. A total of 30 minutes was spent in the care of this patient, including review of chart/prior records, review of imaging, history and physical exam, medical decision making, discussion of findings and recommendations, and documentation. History of Present Illness Reason for Consultation: LLE DVT Attending Physician: Kacy Bardales MD History of Present Illness 71 y m with hx of testicular ca s/p chemotherapy, HTN, hyperlipidemia, presents to [facility] ED with severe low back pain radiating to left leg, seen in vascular consultation today for eval of LLE DVT noted on imaging. Pt states he has hx of LLE DVT about 30 yr ago after being treated for testicular ca. States he has had low back pain with LLE radiation for a few weeks now. No definite new injury. Denies any edema or erythema of legs, WHEAT, fever, chest pain, SOB, abd pain, N/V, rest pain, claudication, other complaints. CT abd/pelvis demonstrates soft tissue susan-lumbar spine mass which is not near his IVC. Venous US of LLE demonstrates echogenic, nondistended LLE veins, consistent with chronic DVT. Allergies Allergy/AdvReac Type Severity Reaction Status Date / Time carvedilol Allergy Unknown Unknown Verified 05/12/21 15:10 lisinopril Allergy Unknown Unknown Verified 05/12/21 15:10 rosuvastatin Allergy Unknown Unknown Verified 05/12/21 15:10 tetracycline Allergy Unknown ITCHING Verified 05/12/21 15:10 Home Medications Medication Instructions Recorded Confirmed Type cholecalciferol (vitamin D3) 25 1,000 units PO DAILY 04/02/19 05/12/21 History mcg (1,000 unit) capsule multivitamin 1 tab PO DAILY 04/02/19 05/12/21 History omega-3 acid ethyl esters 1 gram 1 cap PO DAILY cap 04/02/19 05/12/21 History capsule vitamin B complex 1 cap PO DAILY 04/02/19 05/12/21 History aspirin 325 mg tablet 325 mg PO DAILY 04/08/20 05/12/21 History citalopram 20 mg tablet 20 mg PO DAILY #90 tab 07/22/20 05/12/21 Rx telmisartan 40 mg tablet 40 mg PO DAILY #90 tab 07/29/20 05/12/21 Rx atorvastatin 10 mg tablet 10 mg PO .QOD tab 10/19/20 05/12/21 History cyclobenzaprine 10 mg tablet 10 mg PO TID PRN #30 tab 04/18/21 05/12/21 Rx tramadol 50 mg tablet 50 mg PO Q8H PRN #15 tab 04/29/21 05/12/21 Rx prednisone 10 mg tablet See Rx Instructions .ROUTE 05/02/21 05/12/21 Rx .COMPLEX #30 tab oxycodone 5 mg tablet 5 mg PO Q8H PRN #20 tab 05/11/21 05/12/21 Rx Patient History Medical History Aortic stenosis Atherosclerosis of abdominal aorta Chronic deep vein thrombosis (DVT) of femoral vein History of testicular mass HTN (hypertension) Hyperlipidemia Hypogonadism Low back pain Surgical History History of colonoscopy 03/26/2006 History of ligation of vein VENOUS LIGATION WITH STRIPPING Family History Father Dyslipidemia Diabetes Hypertension Social History Smoking Status: Current every day smoker Tobacco Type: Cigarettes Age Started Using Tobacco: 30; packs per day: 0.15; Years Smoked: 39; Cigarettes Per Day: 3; Second Hand Exposure: No; Do You Dip or Chew Tobacco: No; Tobacco Cessation Education Requested by Patient: No Hx Alcohol Use: Yes Alcohol type: beer Alcohol Intake Frequency: Monthly or Less Hx Substance Use: No Preferred Language: Prydeinig Communication Ability: Effective Visual Impairment: Limited Hearing Ability: Normal Forensic Pathologist Required: No Beliefs That Will Affect Care: None marital status: Current Living Situation: Spouse current occupational status: retired Other Information That Helps Us Care for You: No Feels Safe at Home: Yes Safety Concerns: Feels Safe At This Time Childhood Exposure to Second-Hand Smoke: No caffeine: Yes Dental Care, Regularly: Yes Physical Activity Frequency: 3-4 Times per Week Physical Activity Frequency Comment: walk Seatbelt Use: always Sunscreen Use: Yes Do you think of yourself as: straight/heterosexual Assistive Devices: None Assistive Devices Comment: lower partial: not here Review of Systems Review of Systems: All systems reviewed & are unremarkable except as noted in HPI & below Physical Exam Constitutional: WD/WN, vitals as above healthy appearing, cooperative and comfortable; not in distress ENMT: Ears: no hearing impairment Neck: trachea midline Respiratory: normal respiratory effort, lungs clear to auscultation Cardiovascular: Rate/Rhythm: regular rate and regular rhythm Vessels: posterior tibial pulses present and dorsalis pedis pulses present; + abnormal peripheral pulses Extremities: normal capillary refill; no pedal edema and no edema Gastrointestinal (Abdomen): Inspection/Auscultation: abdomen normal to inspection and normal bowel sounds; abdomen not distended Percuss ion/Palpation: abdomen soft; abdomen nontender Musculoskeletal: no cyanosis or clubbing, extremities motor strength 5/5 Skin: no rashes, warm and dry Neurologic: moves all extremities and awake; no focal motor deficits and not confused Psychiatric: A+Ox3, euthymic affect Results & Data ([facility]) Vital Signs (Past 12 Hours) Vital Signs Temp Pulse Resp BP Pulse Ox 05/13/21 07:04 36.6 C 86 16 165/83 H 92 05/13/21 05:53 88
--- NOTE | 2021-05-13 13:39 | Orthopedic Consultation ---
Date of Consultation May 13, 2021 Assessment & Plan (1) Mass of spine: Patient has a significant expansile lesion to the L3 vertebral body. He is undergoing a CT biopsy. From a spine surgical perspective I would recommend tertiary care for this issue if he were to undergo debridement of the mass. History of Present Illness Reason for Consultation: Back pain Attending Physician: Kacy Bardales MD History of Present Illness This is a 71-year-old male who presents to emergency room with worsening back pain over the past several months. Imaging of the spine demonstrates evidence of a mass involving the L3 vertebral body. It is expansile in nature. There is encroachment into the canal and neural foramen. Patient however does not describe any clear radiculopathy. He states he can stand and ambulate without any limitation at this time. Allergies Allergy/AdvReac Type Severity Reaction Status Date / Time carvedilol Allergy Unknown Unknown Verified 05/12/21 15:10 lisinopril Allergy Unknown Unknown Verified 05/12/21 15:10 rosuvastatin Allergy Unknown Unknown Verified 05/12/21 15:10 tetracycline Allergy Unknown ITCHING Verified 05/12/21 15:10 Home Medications Medication Instructions Recorded Confirmed Type cholecalciferol (vitamin D3) 25 1,000 units PO DAILY 04/02/19 05/12/21 History mcg (1,000 unit) capsule multivitamin 1 tab PO DAILY 04/02/19 05/12/21 History omega-3 acid ethyl esters 1 gram 1 cap PO DAILY cap 04/02/19 05/12/21 History capsule vitamin B complex 1 cap PO DAILY 04/02/19 05/12/21 History aspirin 325 mg tablet 325 mg PO DAILY 04/08/20 05/12/21 History citalopram 20 mg tablet 20 mg PO DAILY #90 tab 07/22/20 05/12/21 Rx telmisartan 40 mg tablet 40 mg PO DAILY #90 tab 07/29/20 05/12/21 Rx atorvastatin 10 mg tablet 10 mg PO .QOD tab 10/19/20 05/12/21 History cyclobenzaprine 10 mg tablet 10 mg PO TID PRN #30 tab 04/18/21 05/12/21 Rx tramadol 50 mg tablet 50 mg PO Q8H PRN #15 tab 04/29/21 05/12/21 Rx prednisone 10 mg tablet See Rx Instructions .ROUTE 05/02/21 05/12/21 Rx .COMPLEX #30 tab oxycodone 5 mg tablet 5 mg PO Q8H PRN #20 tab 05/11/21 05/12/21 Rx Patient History Medical History Aortic stenosis Atherosclerosis of abdominal aorta Chronic deep vein thrombosis (DVT) of femoral vein History of testicular mass HTN (hypertension) Hyperlipidemia Hypogonadism Low back pain Surgical History History of colonoscopy 03/26/2006 History of ligation of vein VENOUS LIGATION WITH STRIPPING Family History Father Dyslipidemia Diabetes Hypertension Social History Smoking Status: Current every day smoker Tobacco Type: Cigarettes Age Started Using Tobacco: 30; packs per day: 0.15; Years Smoked: 39; Cigarettes Per Day: 3; Second Hand Exposure: No; Do You Dip or Chew Tobacco: No; Tobacco Cessation Education Requested by Patient: No Hx Alcohol Use: Yes Alcohol type: beer Alcohol Intake Frequency: Monthly or Less Hx Substance Use: No Preferred Language: [place] Communication Ability: Effective Visual Impairment: Limited Hearing Ability: Normal Commercial Real Estate Underwriter Required: No Beliefs That Will Affect Care: None marital status: Current Living Situation: Spouse current occupational status: retired Other Information That Helps Us Care for You: No Feels Safe at Home: Yes Safety Concerns: Feels Safe At This Time Childhood Exposure to Second-Hand Smoke: No caffeine: Yes Dental Care, Regularly: Yes Physical Activity Frequency: 3-4 Times per Week Physical Activity Frequency Comment: walk Seatbelt Use: always Sunscreen Use: Yes Do you think of yourself as: straight/heterosexual Assistive Devices: None Assistive Devices Comment: lower partial: not here Physical Exam Physical Exam: On exam he was able to stand without issue. He can stand on his toes and heels. He does not appear to be in acute distress. Results & Data ([facility]) Vital Signs (Past 12 Hours) Vital Signs Temp Pulse Resp BP Pulse Ox 05/13/21 07:04 36.6 C 86 16 165/83 H 92 05/13/21 05:53 88
--- NOTE | 2021-05-13 15:05 | Electrocardiogram Report ---
Test Reason : Blood Pressure : / mmHG Vent. Rate : 093 BPM Atrial Rate : 093 BPM P-R Int : 158 ms QRS Dur : 092 ms QT Int : 380 ms P-R-T Axes : 043 -56 036 degrees QTc Int : 472 ms Normal sinus rhythm Possible Left atrial enlargement Left anterior fascicular block Left ventricular hypertrophy Abnormal ECG No previous ECGs available Confirmed by Marshal Pryor ([id number]) on 05/13/2021 3:04:37 PM Referred By: Trever Cornejo Confirmed By:Marshal Pryor
--- NOTE | 2021-05-13 15:52 | Hospitalist Progress Note ---
Date of Service May 13, 2021 Assessment & Plan (1) Mass of spine: Plan: Patient presents to the hospital with several months history of back pain MRI shows a pulsatile mass aroun L3, eroding into the canal For CT guided biopsy Spine surgery on consult, appreciate recs Await pathology of biopsy (2) Chronic deep vein thrombosis (DVT) of femoral vein: Plan: On Lovenox for prophylaxis (3) HTN (hypertension): Plan: BP 165/83 today Continue telmisartan 40 mg p.o. daily (4) Hyperlipidemia: Plan: Continue atorvastatin 10 mg p.o. every other day Plan: VTE prophylaxis - deferred due to CT-guided biopsy planned for tomorrow Diet - regular Disposition -admit to [facility] Admission and Anticipated Discharge Date Admission Date: May 12, 2021 Subjective still some back pain Review of Systems Review of Systems: All systems reviewed are negative, apart from the ones contained in the history. Physical Exam Physical Exam: The patient is awake, alert and oriented 3, well developed and well nourished, normocephalic and atraumatic, lying in bed and in no acute distress. HEENT--PERRL, EOMI, mucous membranes and oropharynx mildly dry Neck--supple. No JVD. No bruits. Thyroid normal, trachea midline, no adenopathy. Heart--normal S1 and S2. No murmurs, rubs or gallops. Lungs--clear bilaterally, no respiratory distress, no accessory muscle use. Abdomen--normal bowel sounds and soft. Mild epigastric and left sided abdominal pain Extremities--no cyanosis or clubbing. No edema. Dermatologic--normal skin turgor, normal color, no abnormal lymph nodes, no rash. Neurologic--cranial nerves II through XII grossly intact. Rheumatologic--normal range of motion. Psychiatric--normal affect. Results & Data Results & Data ([facility]) Vital Signs (Past 12 Hours) Vital Signs Temp Pulse Resp BP Pulse Ox 05/13/21 07:04 97.9 F 86 16 165/83 H 92 05/13/21 05:53 88 Laboratory Results Laboratory Results - last 24 hr 05/12/21 05/12/21 05/12/21 16:39 16:39 16:39 WBC RBC Hgb Hct MCV MCH MCHC RDW Std Deviation RDW Coeff of Jesus Plt Count MPV Immature Gran % (Auto) Neut % (Auto) Lymph % (Auto) [place] % (Auto) Eos % (Auto) Baso % (Auto) Neut # (Auto) Lymph # (Auto) [place] # (Auto) Eos # (Auto) Baso # (Auto) Immature Gran # (Auto) PT INR APTT PTT Ratio Sodium Potassium Chloride Carbon Dioxide Anion Gap BUN Creatinine Est Cr Clr Drug Dosing Est GFR ( Amer) Est GFR (Non-Af Amer) BUN/Creatinine Ratio Glucose Calcium Total Protein (PEP) Pending Albumin (PEP) Pending Auner-1-Zhylspxgs Pending Hcglh-8-Uujxezcuq Pending Ldyh-9-Rjqzublz Pending Lluj-5-Ipatrxgn Pending Gamma Globulins Pending Monoclonal Peak 3 Pending Ser Monoclonl Protein Pending Ser Monoclonal Prot 2 Pending PEP Interpretation Pending U Random Total Protein Ur Creatinine mg/dL Protein/Creatinin Ratio Urine Albumin (%) U Zcinr-1-Yhixqnra (%) U Vwtmm-6-Evdjglrs (%) U Beta Globulin (%) U Gamma Globulin (%) U Abnormal Prot Band 1 U Abnormal Prot Band 2 U Abnormal Prot Band 3 Urine PEP Interpret IgG 847.0 IgA 114.0 IgM 44.8 Serum Immunofixation Pending Free Pandora LC, Quant Pending Free Lambda LC, Quant Pending Free Pandora/Lambda Ratio Pending SARS-CoV-2, RNA, NAAT 05/12/21 05/13/21 05/13/21 Unknown 02:11 02:11 WBC 12.06 H RBC 4.55 L Hgb 14.0 Hct 41.6 L MCV 91.4 MCH 30.8 MCHC 33.7 RDW Std Deviation 47.4 H RDW Coeff of Jesus 14.2 Plt Count 238 MPV 9.9 Immature Gran % (Auto) 0.2 Neut % (Auto) 57.5 Lymph % (Auto) 32.7 [place] % (Auto) 7.2 Eos % (Auto) 2.2 Baso % (Auto) 0.2 Neut # (Auto) 6.93 H Lymph # (Auto) 3.94 H [place] # (Auto) 0.87 H Eos # (Auto) 0.26 Baso # (Auto) 0.03 Immature Gran # (Auto) 0.03 H PT 10.6 INR 1.0 APTT 22.7 PTT Ratio 0.9 Sodium Potassium Chloride Carbon Dioxide Anion Gap BUN Creatinine Est Cr Clr Drug Dosing Est GFR ( Amer) Est GFR (Non-Af Amer) BUN/Creatinine Ratio Glucose Calcium Total Protein (PEP) Albumin (PEP) Zheue-8-Cyflxyxjg Auftx-5-Cbndqgfzx Hryf-9-Osfzxrsj Hiiy-1-Bgqslpba Gamma Globulins Monoclonal Peak 3 Ser Monoclonl Protein Ser Monoclonal Prot 2 PEP Interpretation U Random Total Protein Ur Creatinine mg/dL Protein/Creatinin Ratio Urine Albumin (%) U Tmdeg-6-Gxpjjskv (%) U Xvtbh-2-Ioqijpfn (%) U Beta Globulin (%) U Gamma Globulin (%) U Abnormal Prot Band 1 U Abnormal Prot Band 2 U Abnormal Prot Band 3 Urine PEP Interpret IgG IgA IgM Serum Immunofixation Free Pandora LC, Quant Free Lambda LC, Quant Free Pandora/Lambda Ratio SARS-CoV-2, RNA, NAAT NEGATIVE 05/13/21 05/13/21 05/13/21 02:11 05:36 05:36 WBC 12.63 H RBC 4.53 L Hgb 13.5 L Hct 41.2 L MCV 90.9 MCH 29.8 MCHC 32.8 RDW Std Deviation 48.6 H RDW Coeff of Jesus 14.4 Plt Count 237 MPV 9.9 Immature Gran % (Auto) 0.2 Neut % (Auto) 58.3 Lymph % (Auto) 31.4 [place] % (Auto) 6.7 Eos % (Auto) 3.2 Baso % (Auto) 0.2 Neut # (Auto) 7.37 H Lymph # (Auto) 3.96 H [place] # (Auto) 0.84 H Eos # (Auto) 0.40 Baso # (Auto) 0.03 Immature Gran # (Auto) 0.03 H PT INR APTT 80.3 H* PTT Ratio 3.1 Sodium 138 Potassium 4.1 Chloride 105 Carbon Dioxide 28 Anion Gap 5.0 BUN 18 Creatinine 0.92 Est Cr Clr Drug Dosing 76.0 Est GFR ( Amer) 96.6 Est GFR (Non-Af Amer) 83.4 BUN/Creatinine Ratio 20.0 Glucose 103 H Calcium 9.9 Total Protein (PEP) Albumin (PEP) Weyvq-9-Edxfaczpw Mmdaj-5-Umvuzqhml Vyif-5-Dbfdxnyb Ilew-6-Jzspfmjs Gamma Globulins Monoclonal Peak 3 Ser Monoclonl Protein Ser Monoclonal Prot 2 PEP Interpretation U Random Total Protein Ur Creatinine mg/dL Protein/Creatinin Ratio Urine Albumin (%) U Sxbol-7-Vohghzbi (%) U Schfq-2-Aedjivaf (%) U Beta Globulin (%) U Gamma Globulin (%) U Abnormal Prot Band 1 U Abnormal Prot Band 2 U Abnormal Prot Band 3 Urine PEP Interpret IgG IgA IgM Serum Immunofixation Free Pandora LC, Quant Free Lambda LC, Quant Free Pand[place]/Lambda Ratio SARS-CoV-2, RNA, NAAT 05/13/21 05/13/21 08:15 08:41 WBC RBC Hgb Hct MCV MCH MCHC RDW Std Deviation RDW Coeff of Jesus Plt Count MPV Immature Gran % (Auto) Neut % (Auto) Lymph % (Auto) [place] % (Auto) Eos % (Auto) Baso % (Auto) Neut # (Auto) Lymph # (Auto) [place] # (Auto) Eos # (Auto) Baso # (Auto) Immature Gran # (Auto) PT INR APTT 60.4 H* PTT Ratio 2.3 Sodium Potassium Chloride Carbon Dioxide Anion Gap BUN Creatinine Est Cr Clr Drug Dosing Est GFR ( Amer) Est GFR (Non-Af Amer) BUN/Creatinine Ratio Glucose Calcium Total Protein (PEP) Albumin (PEP) Yqqzc-3-Xfbenehcw Elmkm-7-Oagzggqmc Rbdf-4-Mjylusbm Vznz-0-Nhixeuyi Gamma Globulins Monoclonal Peak 3 Ser Monoclonl Protein Ser Monoclonal Prot 2 PEP Interpretation U Random Total Protein Pending Ur Creatinine mg/dL Pending Protein/Creatinin Ratio Pending Urine Albumin (%) Pending U Flwcq-9-Ldirfzdq (%) Pending U Kiawq-2-Qsbinesc (%) Pending U Beta Globulin (%) Pending U Gamma Globulin (%) Pending U Abnormal Prot Band 1 Pending U Abnormal Prot Band 2 Pending U Abnormal Prot Band 3 Pending Urine PEP Interpret Pending IgG IgA IgM Serum Immunofixation Free Pandora LC, Quant Free Lambda LC, Quant Free Pandora/Lambda Ratio SARS-CoV-2, RNA, NAAT Diagnostic Findings Chest CT 05/12/21 15:55 CT chest diagnostic wo con CLINICAL HISTORY: ? cancer TECHNIQUE: Multidetector row helical CT of the chest was performed. Coronal and sagittal reformations were obtained. Automated dose lowering techniques and/or adjustment according to patient size were utilized for this exam. Comparison: None available at the time of this dictation. FINDINGS: Lungs and pleura: Multifocal cysts are seen bilaterally. There is a nodule in the left upper lobe measuring 5 mm in diameter. Heart and pericardium: Heart size is normal. No pericardial effusion. Vessels: Severe atherosclerotic changes in the aorta and coronary arteries. Mediastinum and carola: Unremarkable. Chest wall and lower neck: Unremarkable. Abdomen: For findings below the diaphragm, please refer to CT of the abdomen dated the same. Bones: No acute fractures are seen. No lytic or blastic lesions are seen to suggest metastatic disease. IMPRESSION: No definite evidence of metastatic disease. A 5 mm nodule in the lingula is seen, attention on follow-up is recommended. ACT 112: Negative or not required by law. Electronically signed by: Hay Zee M.D. 05/12/2021 5:01 PM Venous Doppler Study 05/12/21 19:15 US venous doppler LE LT CLINICAL HISTORY: Left lower extremity pain. Remote history of DVT COMPARISON: None available at the time of this dictation. TECHNIQUE: Left lower extremity real-time compression venous ultrasound with Color Doppler imaging. Utilizing real-time ultrasonic imaging multiple real time high-resolution ultrasonic images with compression and noncompression maneuvers of the deep venous system in addition to color doppler imaging were performed from the common femoral vein through the proximal calf veins. FINDINGS: There is thrombus within the common femoral vein, superficial femoral vein, popliteal vein and veins of the calf representing acute DVT. There is noncompressible. Impression: Extensive deep venous thrombosis. ACT 112: Negative or not required by law. Electronically signed by: Carroll Wright M.D. 05/12/2021 8:32 PM PG Care Time/CCT Total # of Minutes Spent Total Time Spent with Patient: Total time spent is greater than 50% in coordination of care (as documented) at patient's floor/unit and/or counseling patient: Coding Level of Care Code 52927 Subseq Hosp Care Lvl 2 Diagnoses Mass of spine M89.8X8 Chronic deep vein thrombosis (DVT) of femoral vein I82.519 HTN (hypertension) I10 Hypertension type: essential hypertension Hyperlipidemia E78.2 Hyperlipidemia type: mixed hyperlipidemia (1) HTN (hypertension) Hypertension type: essential hypertension Qualified Code(s): I10 - Essential (primary) hypertension (2) Hyperlipidemia Hyperlipidemia type: mixed hyperlipidemia Qualified Code(s): E78.2 - Mixed hyperlipidemia
--- NOTE | 2021-05-13 16:06 | CT Scan Report ---
Procedure: CT-guided biopsy, . CLINICAL HISTORY: Large soft tissue mass Techniques/findings: Following explanation of techniques, benefits and potential complications, [facility] consent was obtained from the patient. The patient was brought to the CT room and placed prone on the table. The preliminary CT of the lumba r spine demonstrated previously noted soft tissue mass centered at L3. The patient was then prepped and draped in the usual standard fashion. 2% Lidocaine was used for local anesthesia. The patient's v ital signs, EKG and oxygen saturation were continuously monitored by nursing staff. "Time out" was called, including patient's name, medical record number and date of , and the pro cedure to be performed was verified prior to beginning the procedure. Under CT guidance, an 18-gauge , 15 cm core biopsy needle was coaxially inserted and 1 samples were obtained. All the samples were s ent to surgical pathology for analysis. As the samples were deemed adequate for analysis, the procedu re was terminated. The needle was removed and hemostasis was achieved with manual compression. The patient tolerated the procedure well and there were no immediate complications. Automated dose lowering techniques and/or adjustment based on patient size were utilized for this exa m. Impression: Successful biopsy of L3 based soft tissue mass under CT guidance. ACT 112: Negative or not required by law. Electronically signed by: Hay Zee M.D. 05/13/2021 4:05 PM
[2021-05-14] MEDS: oxyCODONE HCL IR 5 MG TAB (IMMEDIATE RELEASE) PO PRN ×3 (00:09→13:04)
[2021-05-14 06:56] LABS: Partial Thromboplastin Ratio 0.9; Partial Thromboplastin Time 23.1 Seconds (21.0-31.0)
[2021-05-14] MEDS: NICOTINE 14 MG/24 HR PATCH TD SCH (08:59)
[2021-05-14] MEDS: MoRPHine SULFATE 4 MG/ML 1 ML CARP\\VIAL IV PRN (08:59)
[2021-05-14] MEDS: MULTIVITAMIN TAB PO SCH (09:00)
[2021-05-14] MEDS ORDERED: ATORVASTATIN 10 MG TAB PO SCH (09:00)
[2021-05-14] MEDS: CITALOPRAM 20 MG TAB PO SCH (09:00)
[2021-05-14] MEDS: VITAMIN B COMPLEX TAB PO SCH (09:00)
[2021-05-14] MEDS: predniSONE 10 MG TABLET PO SCH (09:00)
[2021-05-14] MEDS: TELMISARTAN 40 MG TAB PO SCH (09:00)
--- NOTE | 2021-05-14 11:44 | Discharge Summary ---
Date of Service May 14, 2021 Admission HPI Per Admitting Provider Bunny Nunez is a 71 year old male who presents to the ER with back pain. He reports chronic back pain for years however significantly progressed over the last 3 to 4 weeks causing him to have little sleep. Initially he was using acetaminophen and ibuprofen which hardly helped, tramadol did very little, switch to oxycodone which would take the edge off. He tried chiropractor and physical therapy treatments and the pain just increased. His PCP organized a CT abdomen/pelvis and MRI lumbar spine which showed a large soft tissue mass arising from /invading the L3 vertebra. His PCP called him and recommended going back to the emergency room. He is currently on a prednisone taper with 2 days of 10 mg p.o. daily to continue. The steroid taper has helped with his pain. Pain severity 10/10 most of the time, radiating down his left anterior thigh but for the last 2 days it is going down his lateral left lower leg in addition. Associated reduced appetite, lost 20 pounds in the last 1/2 months. He denies any leg weakness, perianal numbness, urine or bowel incontinence. Of note CT abdomen pelvis from 2018 showed a chronic left femoral vein thrombus. 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 There is no mention of the thrombus on today's scan. Current CT abdomen pelvis also is concerning for hyperdense material in the bladder. UA 1+ positive blood however no red blood cells therefore highly doubtful these of blood clots. He is likely to get further imaging due to his soft tissue mass and this can be reevaluated on the scans. ER physician discussed with radiology and able to perform CT-guided biopsy tomorrow. He was referred to medicine for admission ongoing management of the soft tissue /vertebral mass. Principal Diagnosis mass in the spine Discharge Exam The patient is awake, alert and oriented 3, well developed and well nourished, normocephalic and atraumatic, lying in bed and in no acute distress. HEENT--PERRL, EOMI, mucous membranes and oropharynx mildly dry Neck--supple. No JVD. No bruits. Thyroid normal, trachea midline, no adenopathy. Heart--normal S1 and S2. No murmurs, rubs or gallops. Lungs--clear bilaterally, no respiratory distress, no accessory muscle use. Abdomen--normal bowel sounds and soft. Mild epigastric and left sided abdominal pain Extremities--no cyanosis or clubbing. No edema. Dermatologic--normal skin turgor, normal color, no abnormal lymph nodes, no rash. Neurologic--cranial nerves II through XII grossly intact. Rheumatologic--normal range of motion. Psychiatric--normal affect. Discharge Data Allergies Allergy/AdvReac Type Severity Reaction Status Date / Time carvedilol Allergy Unknown Unknown Verified 05/12/21 15:10 lisinopril Allergy Unknown Unknown Verified 05/12/21 15:10 rosuvastatin Allergy Unknown Unknown Verified 05/12/21 15:10 tetracycline Allergy Unknown ITCHING Verified 05/12/21 15:10 Consultations 05/12/21 16:35 ED Decision to Admit Stat 05/13/21 01:56 Consult Vascular Surgery Routine 05/13/21 01:58 Consult Orthopedic Surgery Routine Ordered Studies 05/12/21 15:55 CT chest diagnostic wo con Stat 05/12/21 19:15 US venous doppler LE LT Stat 05/12/21 21:00 CT biopsy retroperitoneum Routine Hospital Course (1) Mass of spine: Patient presents to the hospital with several months history of back pain MRI shows a pulsatile mass aroun L3, eroding into the canal For CT guided biopsy Spine surgery on consult, appreciate recs Await pathology of biopsy However, patient wanted to be discharged, result will be called to him when available Per neurosurgery, patient will need to go to a tertiary institution if the mass needs some form of debridement (2) Chronic deep vein thrombosis (DVT) of femoral vein: On Lovenox for prophylaxis (3) HTN (hypertension): BP 165/83 today Continue telmisartan 40 mg p.o. daily (4) Hyperlipidemia: Continue atorvastatin 10 mg p.o. every other day VTE prophylaxis - deferred due to CT-guided biopsy planned for tomorrow Diet - regular Disposition -admit to [facility] Total Time Total Time Spent Total Time Spent (In Minutes): 35 Discharge Plan Discharge Items Patient Disposition: Home - Self-Care Reason For Visit: BACK PAIN, SOFT TISSUE MASS Discharge Diagnosis: spinal mass Activity: Resume your previous activity Non-emergency contact: Primary Care Provider Call non-emergency contact if: you have any medication questions and your symptoms worsen Follow-up/Referrals: Trever Cornejo MD [Primary Care Provider] - Diet: Regular Addtl Attending Provider Instructions: you will be contacted as soon as the pathology result is out Pending Studies at Discharge: Yes Studies:: Pathology of spinal mass Stand-Alone Forms: My [facility], Smoking Cessation Medications and DC Order Prescriptions: Continued citalopram 20 mg tablet 20 mg PO DAILY Qty: 90 RF: 3 telmisartan 40 mg tablet 40 mg PO DAILY Qty: 90 RF: 3 tramadol 50 mg tablet 50 mg PO Q8H PRN (Reason: pain) Qty: 15 RF: 0 Hold Instructions: oxycodone started oxycodone 5 mg tablet 5 mg PO Q8H PRN (Reason: pain) Qty: 20 RF: 0 cholecalciferol (vitamin D3) 1,000 unit capsule 1,000 units PO DAILY RF: 0 multivitamin tablet 1 tab PO DAILY RF: 0 omega-3 acid ethyl esters 1 gram capsule 1 cap PO DAILY RF: 0 vitamin B complex capsule 1 cap PO DAILY RF: 0 aspirin 325 mg tablet 325 mg PO DAILY RF: 0 cyclobenzaprine 10 mg tablet 10 mg PO TID PRN (Reason: muscle spasm) Qty: 30 RF: 0 prednisone 10 mg tablet See Rx Instructions .Route .COMPLEX Qty: 30 RF: 0 atorvastatin 10 mg tablet 10 mg PO .QOD RF: 0 Discharge Orders: Discharge Order (Routine); Ordered 05/14/21 Ordered By: Kacy Bardales Admission Data Admit Date/Time: 05/12/21 17:49 Attending Provider: Kacy Bardales Admit Provider: Jose Valdez Primary Care Provider: Trever Cornejo Other Providers: Jose Valdez ; Olaf Fong ; Vladimir Hobson Coding Level of Care Code D/C DAY MANAGEMENT >30 MINS Diagnoses Mass of spine M89.8X8 Chronic deep vein thrombosis (DVT) of femoral vein I82.519 HTN (hypertension) I10 Hypertension type: essential hypertension Hyperlipidemia E78.2 Hyperlipidemia type: mixed hyperlipidemia
[2021-05-14] MEDS ORDERED: HEPARIN SOD 5,000 UNIT/0.5 ML VIAL SQ SCH (14:00)
[2021-05-16 17:12] LABS: Albumin 4.1 g/dL (3.8-4.8); Alpha 1 Globulin 0.4 g/dL (0.2-0.3); Beta-1-Globulin 0.4 g/dL (0.4-0.6); Beta-2-Globulin 0.5 g/dL (0.2-0.5); Gamma Globulin 0.8 g/dL (0.8-1.7); Monoclonal Protein Band 1 DNR g/dL (NONE DETECTED); Monoclonal Protein Band 2 DNR g/dL (NONE DETECTED); Monoclonal Protein Band 3 DNR g/dL (NONE DETECTED); Total Protein 7.3 g/dL (6.1-8.1)
[2021-05-17 06:38] LABS: Creatinine Ur 158 mg/dL (20-320); Protein, Urine Random 13 mg/dL (5-25); Ur Protein/Creat Ratio mg/g 82 mg/g creat (22-128); Urine Abnormal Protein Band 1 DNR mg/dL (NONE DETECTED); Urine Abnormal Protein Band 2 DNR mg/dL (NONE DETECTED); Urine Abnormal Protein Band 3 DNR mg/dL (NONE DETECTED); Urine Protein/Creatinine Ratio 0.082 (0.022-0.128)
[2021-05-17 07:06] LABS: Free Kappa 12.2 mg/L (3.3-19.4); Free Kappa/Lambda Ratio 1.54 (0.26-1.65); Free Lambda 7.9 mg/L (5.7-26.3)
--- NOTE | 2021-05-25 13:26 | Coding Query ---
PATHOLOGY To promote full compliance with coding requirements relating to patient care, physician participation is requested in all cases of technical training specialist uncertainty. Please assist us with the question(s) below: Please review the Pathology report and please document any relevant diagnosis(es) below: Diagnosis(es): unable to locate the pathology report Thank you Clau BELL
--- NOTE | 2021-06-27 09:02 | Coding Query ---
PATHOLOGY To promote full compliance with coding requirements relating to patient care, physician participation is requested in all cases of commercial leasing manager uncertainty. Please assist us with the question(s) below: This query had been placed to DR. Kacy Bardales however the physician was unable to locate the pathology report. Would you please be able to assist with this query? The pathology report is shown within the record on 05/13/21 as "PTH Surgical Specimen". Thank you very much for your help. Please review the Pathology report and please document any relevant diagnosis(es) below: Diagnosis(es): Metastatic adenocarcinoma with unknown primary Thank you Clau Gooden [facility]
== END 2021-05-14 13:39 | disposition home or self-care (01) | DRG 844 ==
LOC: ED 14:15 → SUATTDRO 17:49 → 3N 17:49
DX: I82.512 Chronic embolism and thrombosis of left femoral vein; Z83.438 Family history of other disorder of lipoprotein metabolism and other lipidemia; I10 Essential (primary) hypertension; Z85.47 Personal history of malignant neoplasm of testis; Z88.8 Allergy status to other drugs, medicaments and biological substances; Z82.49 Family history of ischemic heart disease and other diseases of the circulatory system; Z79.899 Other long term (current) drug therapy; C79.89 Secondary malignant neoplasm of other specified sites; Z51.81 Encounter for therapeutic drug level monitoring; E78.5 Hyperlipidemia, unspecified; I82.532 Chronic embolism and thrombosis of left popliteal vein; F17.210 Nicotine dependence, cigarettes, uncomplicated; M48.8X6 Other specified spondylopathies, lumbar region; E87.1 Hypo-osmolality and hyponatremia; C80.1 Malignant (primary) neoplasm, unspecified; I70.0 Atherosclerosis of aorta; G89.29 Other chronic pain; Z79.82 Long term (current) use of aspirin; I35.0 Nonrheumatic aortic (valve) stenosis; I82.5Z2 Chronic embolism and thrombosis of unspecified deep veins of left distal lower extremity; M54.16 Radiculopathy, lumbar region; Z88.1 Allergy status to other antibiotic agents

== ENCOUNTER 2021-07-25 09:06 | Observation (INO) ==
--- NOTE | 2021-07-22 15:43 | Anesthesiology Consultation ---
Date of Service July 22, 2021 Assessment & Plan (1) Encounter for pre-operative examination: Chart Review Chart Review: Acceptable Risk for Surgery (pending preop Covid testing results and DOS PRP ) and Patient NOT seen in Pre Admission Testing -Will order PRP for stat AM of surgery Per nursing assessment 07/22/2021, patient denies any recent travel. No known Covid infection in the past 90 days. Patient is fully vaccinated for Covid. No known Covid positive exposures or Covid related symptoms. Preop Covid testing 07/22/21= results pending History Surgery Operation Date: 07/25/21 12:00 Proposed Procedures p A Port Placement - Michael Tirado MD Height/Weight Height: 5 ft 10 in Weight: 67.132 kg Allergies Allergy/AdvReac Type Severity Reaction Status Date / Time carvedilol Allergy Unknown Unknown Verified 07/22/21 15:40 lisinopril Allergy Unknown Unknown Verified 07/22/21 15:40 rosuvastatin Allergy Unknown Unknown Verified 07/22/21 15:40 tetracycline Allergy Unknown ITCHING Verified 07/22/21 15:40 Medications Home Medications Medication Instructions Recorded Confirmed Last Taken cholecalciferol (vitamin D3) 25 1,000 units PO QAM 04/02/19 07/22/21 Unknown mcg (1,000 unit) capsule multivitamin 1 tab PO QAM 04/02/19 07/22/21 Unknown omega-3 acid ethyl esters 1 gram 1 cap PO QAM cap 04/02/19 07/22/21 Unknown capsule vitamin B complex 1 cap PO QAM 04/02/19 07/22/21 Unknown naloxone 4 mg/actuation nasal spray 1 spray INTRANASAL Q3M PRN #2 ea 06/17/21 07/22/21 Unknown oxycodone 5 mg tablet 5 mg PO Q6H PRN #20 tab 07/14/21 07/22/21 Unknown oxycodone-acetaminophen 10 mg-325 1 tab PO .4-6 hours PRN #90 tab 07/14/21 07/22/21 Unknown mg tablet (Percocet) citalopram 20 mg tablet 20 mg PO HS 07/22/21 07/22/21 Unknown Past Medical History Medical History (Updated 07/22/21 @ 16:14 by Bette Garcia PA-C) Aortic stenosis Bordering on mild AV stenosis per 08/15/17 ECHO Atherosclerosis of abdominal aorta Noted on 05/12/[address] scan - "Severe atherosclerotic changes in the aorta and coronary arteries." Chronic deep vein thrombosis (DVT) of femoral vein - Left lower extremity Doppler evaluation 05/12/2021 revealed extensive DVT involving common femoral vein, superficial femoral vein, popliteal vein. - Per heme note 06/15/21- chronic thrombus in the left femoral vein with chronic collateral veins in the anterior abdominal well- had DVT to left LE 33 years ago when testicular cancer diagnosed. History of testicular cancer 33 years ago; treated surgically HTN (hypertension) Hyperlipidemia Hypogonadism Inguinal hernia Low back pain Mass of spine Metastatic adenocarcinoma dx 05/2021; radiation, upcoming chemo Past Family History Family History Father Dyslipidemia Diabetes Hypertension Past Surgical History Surgical History History of biopsy History of colonoscopy 03/26/2006 History of ligation of vein VENOUS LIGATION WITH STRIPPING History of testicular surgery History of tooth extraction Social History Smoking Status: Current every day smoker tobacco type: cigarettes Smoking cigarettes per day: 6 Do You Dip or Chew Tobacco: No Hx Alcohol Use: No Alcohol type: beer alcohol intake frequency: holidays/special occasions only Hx Substance Use: No substance use type: does not use Testing Laboratory Results 06/06/21= WBC: 8.9 H/H: 13.6/40.0 PLATELETS: 305 PT: 14.2 PTT: 28.1 INR: 1.1 Electrocardiogram Date: 05/13/21 Findings: + NSR @ (93bpm ) Possible LAE. LAFB. LVH. Echocardiogram Date:08/05/17 EF:55-60% LV Function:normal RWMA:+ none Other Findings:+ LVH (Borderline concentric) and + diastolic dysfunction (Grade 1) Aortic valve sclerosis bordering on mild stenosis. AV mean gradient =9.8 mmHg; NOLA =1.4 cm; AV max velocity 2.145 m/s (Discussed patient's history of borderline and ECHO last being from 08/2017- due to procedure being a port placement - patient can proceed as scheduled per Dr Ham) Other Testing Chest CT 05/12/21= No definite evidence of metastatic disease. A 5 mm nodule in the lingula is seen, attention on follow-up is recommended.
[~2021-07-25 09:06] MED LIST changes: -AMLO-110 PO; -ASPECOTC PO; -B-COTAB18 PO; -CALC600T9 PO; -CHOL200010 PO; -CITA20TA4 PO; -DEXAMETHASONE SOD INJ 4 MG/ML VIAL ONE; -DVN/160 PO; -LIDOCAINE HCL 1% MPF 5 ML VIAL ONE; +LR 15ML/HR IV SCH; -MULT-506 PO; -OMEG10007 PO; -SIMV20TA2 PO; +ceFAZolin 2000MG 2,000 MG/15 ML SYR IV SCH
[2021-07-25] MEDS ORDERED: MIDAZOLAM HCL 1 MG/ML 2ML VIAL ONE (09:51)
[2021-07-25] MEDS ORDERED: HEPARIN 100 UNIT/ML 5ML FLUSH ONE (09:53)
[2021-07-25] MEDS ORDERED: LIDOCAINE 1%/EPINEPHRINE 1:100,000 50 ML VIAL ONE (09:53)
--- NOTE | 2021-07-25 10:26 | History & Physical Bridge Note ---
Date of Service July 25, 2021 History & Physical Bridge Note I have examined the patient, reviewed the History & Physical and in the interval since the performance of the History & Physical I have noted the following changes of clinical significance: no changes noted
[2021-07-25 10:27] LABS: BUN Creatinine Ratio 15.1 (10-20); Calcium 9.7 mg/dl (8.5-10.1); Creatinine Clr Calc Pharmacy 88.1 ml/min; Est GFR (African American) 108.2 ml/min; Est GFR (Non-African American) 93.3 ml/min; Potassium 4.3 mmol/L (3.5-5.1)
[2021-07-25] MEDS ORDERED: ATROPINE SULFATE 0.1 MG/ML 10ML SYR IV PRN (10:31)
[2021-07-25] MEDS ORDERED: ONDANSETRON INJ 2 MG/ML 2 ML VIAL IV PRN ×2 (10:31→14:27)
[2021-07-25] MEDS ORDERED: fentaNYL citrate 100 MCG/2 ML VIAL ONE (10:39)
[2021-07-25] MEDS ORDERED: LIDOCAINE 2% 2 ML VIAL/AMP(20MG/ML) INFIL ONE (10:40)
[2021-07-25] MEDS ORDERED: PROPOFOL IV EMULSION 10 MG/ML 20 ML VIAL IV ONE (10:40)
--- NOTE | 2021-07-25 11:37 | Post Operative Brief Note ---
Immediate Post Op Note v1 Date of Surgery July 25, 2021 Pre & Post Diagnosis Operation Date: 07/25/21 10:40 Pre-Op Diagnosis: Encounter for Insertion of Venous Access Port Post-Op Diagnosis: Encounter for Insertion of Venous Access Port I identified the patient and participated in the time-out.: Yes Procedure Operation Date: 07/25/21 10:40 Actual Procedures p A Port Placement(Left) - Michael Tirado MD Surgeon Michael Tirado MD Placing Judge JUAN Jordan assisted with tissue retraction Estimated Blood Loss 5 Findings See Below cannulated the left subclavian artery; catheter removed and pressure held for 10 minutes. procedure aborted at that time. CTA pending to assess subclavian artery.
[2021-07-25] MEDS ORDERED: ACETAMINOPHEN 325 MG TAB PO PRN (11:49)
[2021-07-25] MEDS ORDERED: oxyCODONE HCL IR 5 MG TAB (IMMEDIATE RELEASE) PO PRN (11:54)
[2021-07-25] MEDS ORDERED: oxyCODONE/ACETAMINOPHEN 10-325 TAB PO PRN (11:54)
--- NOTE | 2021-07-25 11:58 | Operative Report ---
Post Operative Report Pre & Post Diagnosis Operation Date: 07/25/21 10:40 Pre-Op Diagnosis: Encounter for Insertion of Venous Access Port Post-Op Diagnosis: Encounter for Insertion of Venous Access Port I identified the patient and participated in the time-out.: Yes Procedure Operation Date: 07/25/21 10:40 Actual Procedures p A Port Placement(Left) - Michael Tirado MD Surgeon Michael Tirado MD Environmental Protection Specialist JUAN Jordan assisted with tissue retraction Estimated Blood Loss 5 Findings Consistent with Post-Op Diagnosis inadvertent cannulation of the subclavian artery. catheter removed, pressure held for 10 minutes. CTA pending. Specimens none Anesthesia Type MAC Complications cannulation of the subclavian artery; discussed with vascular surgery by phone; catheter removed and pressure held for 10 minutes. Description of Procedure In the operating room, placed supine on the operating table. A timeout was performed, perioperative antibiotics were administered, SCD boots were placed. After adequate anesthesia and analgesia was obtained, the area was prepped and draped in the normal sterile fashion. Local anesthetic was injected into and around the deltopectoral groove on the left side. Incision was made in the de ltopectoral groove and carried down to the level of the fascia. The deltopectoral groove fascia was incised, and the vein was identified. It was controlled and ligated distally and controlled proximally with 3-0 silk. A venotomy was performed and we attempted to thread the catheter down through the vein into the subclavian vein. The catheter would not thread. The attempt was abandoned, and the proximal vein was ligated. A Seldinger technique was then used to attempt cannulation of the subclavian vein. On the second pass, a small trickle of blood was aspirated. There was no pulsatile flow. The syringe was removed from the needle, and again there is no evidence of pulsatile flow. A wire was threaded down through the needle into what appeared to be the subclavian vein and subsequently the superior vena cava. There is no ectopy on the monitor, and fluoroscopic view confirmed what appeared to be good positioning of the wire. The dilator and introducer were placed over the wire a nd the wire and introducer were removed. As the catheter was introduced through the introducer, more brisk backbleeding was identified, but still not pulsatile. The introducer was removed and again the catheter appeared to be in good position and what appeared to be the superior vena cava. At this point more vigorous backbleeding was identified around the catheter, and I removed the clamp from the catheter and noted pulsatile bleeding from the catheter. At this point it became clear that the subclavian artery had been cannulated instead of the subclavian vein. I discussed the situation by phone with Dr. Fong from vascular surgery. The catheter was removed, and 10 minutes of firm pressure above and below the left clavicle was held. Upon removal of pressure, there was no further backbleeding and no evidence of a developing hematoma in this region. At this point, further attempts at port placement was abandoned. The subcutaneous tissue was closed with 3-0 Vicryl, and the skin was closed with a running 4-0 Monocryl subcuticular stitch. Dermabond was applied. He was transferred in stable condition to the PACU, where he is awaiting a CTA of his chest to assess the left subclavian artery. All instrument, needle, and sponge counts were correct at the end of the case. My orthodontic assistant was necessary throughout the procedure for tissue retraction, possible camera operation, and closure of the wounds. I understand that section 1842(b)(7)(D) of the Social Security act generally prohibits Medicare physician fee schedule payment for the services of assistants at surgery in teaching hospitals when qualified residents are available to furnish such services. I certify that the services for which payment is claimed were medically necessary and that no qualified resident was available to perform the services. I further understand that these services are subject to postpayment review by the Medicare carrier. I attest to the content of the Intraoperative Record and any orders documented therein. Any exceptions are noted below.
[2021-07-25] MEDS: fentaNYL citrate 100 MCG/2 ML VIAL IV PRN ×2 (11:59→12:06)
[2021-07-25] MEDS ORDERED: OPTIRAY 320 125ml IV ONE (12:32)
[2021-07-25 12:49] LABS: Hematocrit (blood only) 35.3 % (42-52); Hemoglobin 11.5 g/dL (14.0-18.0)
--- NOTE | 2021-07-25 12:56 | Fluoroscopy Report ---
FL chest 1V frontal CLINICAL HISTORY: PORT PLACEMENT COMPARISON STUDY: None. FLUOROSCOPY TIME: 15 seconds. FLUOROSCOPIC IMAGES: 6 FINDINGS: Fluoroscopy was provided during placement of a left subclavian [id number]. Initial image demonstrates a wire which projects of the left subclavian vessels. By fluoroscopy, it is not possibl e to differentiate the left subclavian vein from artery. Clinically, the catheter was determined to b e within the left subclavian artery and was therefore removed. IMPRESSION: Fluoroscopy provided during placement of a left subclavian catheter, as described above, which was subsequently removed. ACT 112: Negative or not required by law. Electronically signed by: Young Gillespie M.D. 07/25/2021 12:55 PM
--- NOTE | 2021-07-25 13:15 | CT Scan Report ---
CT ANGIOGRAM OF THE CHEST COMBO CLINICAL HISTORY: Left subclavian artery injury. Inadvertent cannulation of the left subclavian arter y during infusion port placement. COMPARISON STUDY: Chest CT dated 05/12/2021. TECHNIQUE: Before and following the IV administration of 120 cc of Optiray 320, CT angiogram of the c hest was performed from the thoracic inlet to the upper abdomen utilizing the dissection protocol. Im ages are reviewed in the axial, sagittal, and coronal planes. 3-D MIPS images are created and assesse d. IV contrast was administered without complication. A dose lowering technique was utilized adherin g to the principles of ALARA. The examination is degraded by streak artifact from the left arm which could not be elevated above the chest. CT DOSE: 542.34 mGy.cm FINDINGS: Thyroid: Imaged portions of the thyroid gland are normal in size and attenuation. Thoracic aorta: No intramural hematoma is seen on the unenhanced series. There is atherosclerotic ricarda cification of the thoracic aorta. There is a 3.7 cm thrombosed saccular aneurysm of the descending th oracic aorta seen on image #238. The remainder of the thoracic aorta is normal in caliber and the arc h demonstrates standard 3-vessel anatomy. No dissection is identified in the thoracic aorta. The arch vessels are widely patent. 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 This is located approximately 3.5 cm distal to the takeoff of the left vertebral artery. The left upper extremity vessels are patent to the level of the antecubital f jose. Soft tissues: Soft tissue gas and cutaneous defect are seen in the anterior left upper chest wall. Th ere is mild fluid around the left subclavian artery at this level. No organized hematoma is seen end there is no evidence of active extravasation. Pulmonary vasculature: The pulmonary trunk is normal in caliber. There are no filling defects identif ied in the main, lobar, or segmental pulmonary arteries to indicate pulmonary embolus. Heart: The heart is normal in size and without pericardial effusion. The coronary arteries are densel y calcified. Lungs and pleural spaces: Emphysematous change is noted. There is bibasilar scarring/atelectasis. No airspace consolidation or pleural effusion is identified. Foci of scarring/atelectasis are seen throu ghout both lungs, greatest at the lung bases. There are scattered calcified granulomas. The trachea a nd central airways appear clear. The 7 mm pulmonary nodule is seen in the lingula on image #2017 at t he unenhanced series. Mediastinum: There is no mediastinal lymphadenopathy. Sarika: Clear. Axillae: There is no axillary lymphadenopathy. Upper abdomen: Partially visualized upper abdominal viscera is within normal limits. Skeletal structures: The skeletal structures are osteopenic. No lytic or blastic bony lesions are see n. Degenerative change is noted in the lower cervical spine in the shoulders. IMPRESSION: 1. 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 2. There is fluid and infiltration around the left subclavian artery with no organized hematoma, acti ve extravasation, or evidence of pseudoaneurysm. 3. 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 4. The arch vessels are widely patent. 5. Emphysema. 6. There is no airspace consolidation typical for pneumonia or pleural effusion. 7. There is no evidence of pulmonary embolus in the main, lobar, or segmental pulmonary arteries.. 8. There is a 7 mm pathologically indeterminant pulmonary nodule in the lingula. This can be followed as per the Fleischner criteria. 9. Additional findings as above. Please refer to below summary of Fleischner criteria recommendations for follow-up of incidental CT n odules (Meghna Coker, Guidelines for management of small pulmonary nodules detected on CT scans: A sta tement from the Fleischner Society, Radiology 237: [phone].) SOLID NODULES Solitary nodule size: <6 mm * low risk patients: no follow-up needed * high risk patients: optional CT at 12 months Solitary nodule size: 6-8 mm * low risk patients: follow-up at 6-12 months, then consider further follow-up at 18-24 months * high risk patients: initial follow-up CT at 6-12 months and then at 18-24 months if no change Solitary nodule size: >8 mm * either low or high risk patients - consider follow-up CT at 3 months, and/or CT-PET, and/or biopsy Multiple nodules size: <6 mm * low risk patients: no routine follow-up * high risk patients: optional CT at 12 months Multiple nodules size: 6-8 mm * low risk patients: follow-up at 3-6 months, then consider further follow-up at 18-24 months * high risk patients: follow-up at 3-6 months, then at 18-24 months if no change Multiple nodules size: >8 mm * low risk patients: follow-up at 3-6 months, then consider further follow-up at 18-24 months * high risk patients: follow-up at 3-6 months, then at 18-24 months if no change Note: newly detected indeterminate nodule in persons 35 years of age or older. * low risk patients: minimal or absent history of smoking and/or other known risk factors * high risk patients: history of smoking or of other known risk factors (e.g. first degree relative with lung cancer, or exposure to asbestos, radon, uranium) * if a nodule up to 8 mm is partly solid or is ground glass further follow-up is required after 24 m onths to exclude possible slow growing adenocarcinoma ([facility]) SUBSOLID NODULES Solitary pure ground-glass nodule * nodule size <6 mm - no CT follow-up required * nodule size >=6 mm - follow-up CT at 6-12 months, then every 2 years until 5 years Solitary part-solid nodule * nodule size <6 mm - no CT follow-up required * nodule size >=6 mm - follow-up CT at 3-6 months. If unchanged, and solid component remains <6 mm, then annual follow-up for 5 years Multiple subsolid nodules * nodule size <6 mm - follow-up CT at 3-6 months, consider further follow-up at 2 and 4 years if sta ble * nodule size >=6 mm - follow-up CT at 3-6 months, subsequent management based on the most suspiciou s nodule(s) ACT 112: Negative or not required by law. Electronically signed by: Gallo Mcneal M.D. 07/25/2021 1:14 PM
--- NOTE | 2021-07-25 14:55 | Anesthesiology Progress Note ---
Date of Service July 25, 2021 Anesthesia Post Procedure Vital Signs Vital Signs: Temp Pulse Pulse Resp BP BP Pulse Ox 07/25/21 14:45 91 H 16 110/70 97 07/25/21 14:15 78 16 103/68 96 07/25/21 13:45 78 16 118/71 96 07/25/21 13:15 89 19 121/83 97 07/25/21 13:05 85 14 121/79 97 07/25/21 12:55 87 16 131/90 98 07/25/21 12:45 85 19 135/84 95 07/25/21 12:35 86 15 123/73 96 07/25/21 12:25 84 16 124/82 96 07/25/21 11:55 87 13 111/80 95 07/25/21 11:45 83 19 125/81 96 07/25/21 11:38 36.8 C 82 18 126/77 96 07/25/21 09:49 36.8 C 103 H 16 131/87 96 Pain Intensity Back: Pain Intensity: 5 Transfer of Care Handoff Completed per policy Notes Mental Status: alert / awake / arousable Patient Amnestic to Procedure: Yes Nausea / Vomiting: adequately controlled Pain: adequately controlled Airway Patency, RR, SpO2: stable & adequate BP & HR: stable & adequate Hydration State: stable & adequate Anesthetic Complications: no major complications apparent
[2021-07-25] MEDS: LACTATED RINGER'S 1,000 ML IV SCH (15:25)
[2021-07-25] MEDS ORDERED: CITALOPRAM 20 MG TAB PO SCH (21:00)
[2021-07-25] MEDS: oxyCODONE/ACETAMINOPHEN 10-325 TAB PO PRN (21:01)
[2021-07-26] MEDS: oxyCODONE/ACETAMINOPHEN 10-325 TAB PO PRN ×2 (02:40→07:22)
[2021-07-26] MEDS: LACTATED RINGER'S 1,000 ML IV SCH (02:40)
--- NOTE | 2021-07-26 06:50 | Surgery Progress Note ---
Date of Service July 26, 2021 Assessment & Plan (1) Encounter for insertion of venous access port: Plan: POD1 s/p aborted port placement due to cannulation/dilation of subclavian artery. doing well. CTA with no active extravasation or pseudoaneurysm. small focal dissection at site of cannulation. will check with vascular surgery for any further recommendations. most likely discharge to home today. Admission and Anticipated Discharge Date Admission Date: July 25, 2021 Subjective POD1 from aborted port placement. doing well. no complaints. Physical Exam Constitutional: WD/WN, vitals as above Eyes: PERRL, conjunctivae normal, anicteric sclerae Neck: trachea midline, no thyromegaly Chest (Breasts): Chest: normal inspection of chest Additional Comments: incision healing well with dermabond; no evidence of hematoma/ecchymosis Musculoskeletal: Extremities: no cyanosis and no clubbing Skin: no rashes, warm and dry Results & Data ([facility]) Vital Signs (Past 12 Hours) Vital Signs Temp Pulse Pulse Resp BP Pulse Ox 07/26/21 06:28 74 14 125/75 95 07/26/21 03:00 36.8 C 93 H 19 114/72 94 07/26/21 00:00 37.5 C 95 H 92 H 16 109/73 96 07/25/21 20:00 55 L 16 136/86 96 07/25/21 19:24 37.0 C 92 H 18 116/79 96
[2021-07-26 07:11] LABS: Hematocrit (blood only) 35.8 % (42-52); Hemoglobin 11.9 g/dL (14.0-18.0)
[2021-07-26] MEDS ORDERED: MULTIVITAMIN TAB PO SCH (09:00)
[2021-07-26] MEDS ORDERED: OMEGA-3 (PURIFIED FISH OIL) 1 GM CAP PO SCH (09:00)
[2021-07-26] MEDS ORDERED: CHOLECALCIFEROL 1,000 UNITS 25 MCG TAB PO SCH (09:00)
[2021-07-26] MEDS ORDERED: VITAMIN B COMPLEX TAB PO SCH (09:00)
--- NOTE | 2021-08-01 14:04 | Discharge Summary ---
Date of Service August 01, 2021 Admission HPI Per Admitting Provider He was admitted to the hospital for a port placement. During the port placement, it was noted the port was placed into the subclavian artery. The port was pulled and pressure was held. CT scan demonstrated no extravasation or pseudoaneurysm. He was admitted for observation overnight. Principal Diagnosis Need for central venous access Discharge Exam Constitutional WD/WN, vitals as above Eyes PERRL, conjunctivae normal, anicteric sclerae Neck trachea midline, no thyromegaly Chest (Breasts) Chest: normal inspection of chest Musculoskeletal Extremities: no cyanosis and no clubbing Skin no rashes, warm and dry Discharge Data Allergies Allergy/AdvReac Type Severity Reaction Status Date / Time carvedilol Allergy Unknown Unknown Verified 07/25/21 09:48 lisinopril Allergy Unknown Unknown Verified 07/25/21 09:48 rosuvastatin Allergy Unknown Unknown Verified 07/25/21 09:48 tetracycline Allergy Unknown ITCHING Verified 07/25/21 09:45 Procedures Performed Operation Date: 07/25/21 10:40 Actual Procedures p A Port Placement(Left) - Michael Tirado MD Ordered Studies 07/25/21 [place] chest 1V frontal Routine 07/25/21 11:22 CT angio chest wo/w con Stat Hospital Course (1) Encounter for insertion of venous access port: He was admitted to the hospital following the CT scan which demonstrated no active extravasation or pseudoaneurysm. He was stable overnight. Blood count in the morning was normal. No evidence of active bleeding. He was discharged home in stable condition. He will follow up as an outpatient to discuss reattempt at port placement. Total Time Total Time Spent Total Time Spent (In Minutes): 30 minutes Discharge Plan Discharge Items Patient Disposition: Home - Self-Care Reason For Visit: Encounter for Insertion of Venous Access Port Discharge Diagnosis: Attempt at insertion of left venous access port Activity: Per Instructions section Non-emergency contact: Surgeon Call non-emergency contact if: you have any medication questions, your pain is worsening, your temperature is above 101, your wound has increased redness, your wound has increased drainage and your wound pain has increased Follow-up/Referrals: Trever Cornejo MD [Primary Care Provider] - Denia eMna PA-C [Physician Team Lead] - 08/02/21 11:00 am Diet: Regular Addtl Attending Provider Instructions: MEDICATIONS: Resume previous medications unless instructed otherwise by your surgeon. * Ibuprofen 600 mg every 6 hours with food * Tylenol 650 mg every 6 hours, as needed for pain SPECIAL CARE INSTRUCTIONS: * May shower in 24 hours. Let water run over area and pat dry. * Call the surgeon's office with any questions or concerns - (ex. temperature higher than 101 degrees F, excessive bleeding or pain). FOLLOW UP VISIT: If not already scheduled, please call the office to schedule a two week follow- up appointment. Office number Pending Studies at Discharge: No Stand-Alone Forms: My [facility] Medications and DC Order Prescriptions: Continued oxycodone-acetaminophen [Percocet] 10-325 mg tablet 1 tab PO .4-6 hours PRN (Reason: pain) Qty: 90 RF: 0 oxycodone 5 mg tablet 5 mg PO Q6H PRN (Reason: breakthrough pain) Qty: 20 RF: 0 cholecalciferol (vitamin D3) 1,000 unit capsule 1,000 units PO QAM RF: 0 multivitamin tablet 1 tab PO QAM RF: 0 omega-3 acid ethyl esters 1 gram capsule 1 cap PO QAM RF: 0 vitamin B complex capsule 1 cap PO QAM RF: 0 citalopram [Celexa] 20 mg tablet 20 mg PO HS RF: 0 Discharge Orders: Discharge Order (Routine); Ordered 07/26/21 Ordered By: Michael Tirado Admission Data Admit Date/Time: 07/25/21 11:49 Attending Provider: Michael Tirado Admit Provider: Michael Tirado Primary Care Provider: Trever Cornejo Other Interventions: Discharge Summary Assessment (RN) Last Done: 07/26/21 06:57
== END 2021-07-26 10:44 | disposition home or self-care (01) ==
LOC: ASU 09:06 → PACUINP 09:06 → 2S 18:27